=== PATIENT | female | born 1970 | race African-American/Black ===

== ENCOUNTER 2016-08-05 20:26 | Emergency (ER) | payer MEDICARE ==
[~2016-08-05 20:26] MED LIST: ALBUTEROL17 GM; ALBUTEROL17 GM INH; ALL DAY ALLERGY10 M3 PO; ARISTOCORT A 0.15 GM TOP; ASPIRIN PO; ATENOLOL PO; BACLOFEN10 MG PO; BAYER ASPIRIN325 M1 PO; BENTYL20 MG PO; BENZONATATE PO; BISOPROLOL FUMA10 MG PO; BUMETANIDE1 MG PO; BUMEX1 MG PO; CARDURA2 MG PO; CARTIA XT PO; CATAPRES0.3 MG PO; CLONIDINE HCL0.1 MG PO; CLONIDINE HCL0.3 MG PO; CLONIDINE PO; COATED ASPIRIN325 M1 PO; DAKIN'S MODIF1000 ML EXT; DILTIAZEM 24HR240 M1 PO; DILTIAZEM 24HR360 M1 PO; DOXAZOSIN MESYLA2 MG PO; DUONEB 2.5-0.5 M3 ML NEB; FLEXERIL10 MG PO; FUROSEMIDE40 MG PO; GLUCOTROL PO; GLUCOTROL10 MG PO; HYDRALAZINE HC100 MG PO; HYZAAR 100-25 T1 TAB PO; HYZAAR PO; IBUPROFEN800 MG PO; K-DUR20 ME1 PO; LANTUS100 UNITS/ SUBQ; LASIX PO; LINZESS290 MCG PO; LOSARTAN POTASS50 MG PO; MELOXICAM15 MG PO; METFORMIN PO; MICARDIS40 MG PO; MOBIC15 MG PO; MUCINEX DM ER1 EACH PO; MUCINEX100 MG/BOX PO; MUCUS RELIEF600 M1 PO; NAPROSYN500 MG PO; NORCO 5/325 TAB1 TAB PO; OINTMENT; ONGLYZA5 MG PO; PANTOPRAZOLE SO40 MG PO; PREDNISONE PO; PREDNISONE10 MG PO; PREDNISONE10 MG/DOSE PO; PROTONIX PO; RENAGEL800 MG PO; RENVELA0.8 GM PO; SANTYL15 G1 TP; SYMBICORT INH; TESSALON PERLE100 M1 PO; TRAMADOL HCL50 M1 PO; ZITHROMAX PO
[2016-08-05 20:45] LABS: BASOPHIL# 0.1 X10e3 (0-0.3); EOSINOPHIL# 0.3 X10e3 (0-0.7); EOSINOPHIL% 3.4 % (0.0-7.0); HEMATOCRIT 33.4 % (35.0-45.0); HEMOGLOBIN 10.8 gm/dL (12.0-16.0); LYMPHOCYTE# 2.4 X10e3 (1.0-3.5); LYMPHOCYTE% 23.8 % (17.0-45.0); MEAN CELL VOLUME 86.2 FL (83-96); MEAN CORPUSCULAR HEMOGLOBIN 27.8 PG (28-34); MEAN CORPUSCULAR HGB CONC 32.3 g/dL (30-36); MEAN PLATELET VOLUME 8.5 FL (6.5-11.5); MONOCYTE# 0.5 X10e3 (0-1.0); MONOCYTE% 5.4 % (3.0-12.0); NEUTROPHIL# 6.7 X10e3 (1.5-7.1); NEUTROPHIL% 66.4 % (40-75); PLATELET COUNT 286 X10e3 (140-420); RED BLOOD COUNT 3.87 X10e (3.90-5.30); RED CELL DISTRIBUTION WIDTH 15.1 % (11.0-15.5); WHITE BLOOD COUNT 10.1 X10e3 (4.0-10.5)
[2016-08-05 20:47] LABS: DIFF IND NO
== END 2016-08-05 21:11 | disposition home or self-care (01) ==
LOC: CFTX 20:26
PROVIDERS: Student in an Organized Health Care Education/Training Program
DX: J06.9 Acute upper respiratory infection, unspecified (principal); J02.9 Acute pharyngitis, unspecified; I10 Essential (primary) hypertension; M54.30 Sciatica, unspecified side; E11.9 Type 2 diabetes mellitus without complications; F41.9 Anxiety disorder, unspecified; Z88.0 Allergy status to penicillin
CPT/HCPCS: 36415; 85025; 87651; 99283

== ENCOUNTER 2016-08-10 11:13 | Emergency (ER) | payer MEDICARE | END 2016-08-10 12:35 | disposition home or self-care (01) | LOC: CED 11:13 | DX: M54.42 Lumbago with sciatica, left side (principal); G89.29 Other chronic pain; E11.9 Type 2 diabetes mellitus without complications; J44.9 Chronic obstructive pulmonary disease, unspecified; I10 Essential (primary) hypertension; G47.33 Obstructive sleep apnea (adult) (pediatric); Z98.890 Other specified postprocedural states; Z88.5 Allergy status to narcotic agent; Z88.1 Allergy status to other antibiotic agents; Z88.6 Allergy status to analgesic agent; Z88.8 Allergy status to other drugs, medicaments and biological substances | CPT/HCPCS: 99282; 99283 ==

== ENCOUNTER 2016-09-09 21:26 | Inpatient (IN) | payer MEDICARE, OTHER ==
--- NOTE | ~2016-09-09 | EKG ---
PATIENT: LINDA VANG UNIT #: [id number] Ventricular Rate: 79 BPM Atrial Rate: 79 BPM P-R Interval: 182 ms QRS Duration: 104 ms Q-T Interval: 456 ms QTC Calculation(Bezet): 522 ms P Louise: 26 degrees Calculated R Louise: -14 degrees Calculated T Louise: 141 degrees Diagnosis Line: Normal sinus rhythm Diagnosis Line: Voltage criteria for left ventricular hypertrophy Diagnosis Line: T wave abnormality, consider lateral ischemia Diagnosis Line: Prolonged QT Diagnosis Line: Abnormal ECG Diagnosis Line: When compared with ECG of 11-SEP-2016 05:31, Diagnosis Line: Nonspecific T wave abnormality, improved in Diagnosis Line: Inferior leads Diagnosis Line: QT has lengthened Diagnosis Line: Confirmed by RASTA ZHANG MD ([id number]) on 09/13/2016 Diagnosis Line: 7:05:16 PM INTERPRETING MD: VICENTE MCCABE
--- NOTE | ~2016-09-09 | CR265 ---
[facility] A Service of [facility] & [facility] RADIOLOGY TEXT RESULTS PATIENT: LINDA VANG LOCATION: [facility] 563-01 : [birth year] UNIT #: [id number] AGE: [address]: Araceli Coleman MD SEX: F ORDER DR: [id number] [facility] [address] [place], [place] [address] [id number] MR#: [id number] Acc #: [id number] NAME: LINDA VANG : 1970 SEX: F STUDY DATE/TIME: 09/11/2016 15:32 UNIT: [facility] ROOM: [facility] STUDY DESCRIPTION: CR Upper GI Series Wo KUB Attending Physician: Araceli Coleman M.D. Ordering Physician: Araceli Coleman M.D. Primary Care Physician: Stacia Torres M.D. MEDICAL IMAGING REPORT This report is preliminary unless electronic signature is present EXAM Upper GI series with fluoroscopy DATE 09/11/2016 HISTORY Nausea, vomiting, epigastric pain, morbid obesity, sleep apnea. 255 pounds. Urinary tract infection. Diabetes. Congestive heart failure. Heart murmur. Neuropathy. Nausea and vomiting with epigastric pain began approximately [address] abdomen and pelvis with contrast 09/11/2015 FINDINGS 23 spot fluoroscopic images were obtained with a total of 1.5 minutes fluoroscopy time. The study is severely limited, as the patient could not follow commands for the examination. She was somewhat somnolent. She could only swallow a few sips of contrast, and seemed somewhat confused, and the study was subsequently terminated. On the limited portion of the examination, there is some abnormal tertiary contraction within the thoracic esophagus with mild reflux. No gross hernia is seen. Only the proximal stomach was opacified with enteric contrast and it appears unremarkable. Consider repeat imaging when the patient is able to cooperate. Dictated by... Kriss Hernandez M.D. THIS IS AN ELECTRONICALLY VERIFIED REPORT Kriss Hernandez M.D. at 09/12/2016 7:11 AM [facility] A Service of [facility] & [facility] RADIOLOGY TEXT RESULTS PATIENT: LINDA VANG LOCATION: [facility] 563-01 : [birth year] UNIT #: [id number] AGE: [address]: Araceli Coleman MD SEX: F ORDER DR: OSIRIS/otis TD: 09/11/2016 17:45 JOB #: [id number] MEDICAL IMAGING REPORT Page 1 of 1 COPY
--- NOTE | ~2016-09-09 | CT2 ---
[facility] A Service of [facility] & [facility] RADIOLOGY TEXT RESULTS PATIENT: LINDA VANG LOCATION: [facility] 563-01 : [birth year] UNIT #: [id number] AGE: [address]: Jami Aguirre MD SEX: F ORDER DR: [id number] [facility] [address] [place], [place] [address] [id number] I MR#: [id number] Acc #: [id number] NAME: LINDA VANG : 1970 SEX: F STUDY DATE/TIME: 09/10/2016 0:07 UNIT: CEDOF ROOM: 86467 STUDY DESCRIPTION: CT Abd and Pelv W Cont Attending Physician: Jami Aguirre M.D. Ordering Physician: Reji Dan M.D. Primary Care Physician: Stacia Torres M.D. MEDICAL IMAGING REPORT This report is preliminary unless electronic signature is present EXAM CT abdomen and pelvis with contrast INDICATIONS Abdominal pain, nausea, vomiting for a week. COMPARISON 03/30/2015. TECHNIQUE Patient was given 100 mL of Isovue-370 and axial 5 mm images were obtained through the abdomen and pelvis with IV contrast. This CT exam was performed with one or more of the following radiation dose reduction techniques: automatic exposure control, adjustment of mA and/or kV according to patient size, and iterative reconstruction. FINDINGS Study is limited by patient size with the images being very grainy. The liver, gallbladder, spleen, pancreas, adrenal glands and kidneys are normal appearance. The lung bases are clear. There is a mass adjacent to the right side of the uterus. It is essentially isodense with the uterus and it is either a solid ovarian mass measuring 8 cm in diameter or a uterine fibroid. The ovary appears to be lateral to this mass so I believe it represents a uterine fibroid. The mass has developed since 2010 and the bladder is normal. The bones are unremarkable. IMPRESSION 1. There is an 8 cm mass between the uterus and right ovary. It is well-circumscribed and appears solid and is new from 2010. This could represent uterine fibroid or an ovarian lesion. COMMUNICATION STUDIES PROFESSOR consultation is recommended. [facility] A Service of [facility] & [facility] RADIOLOGY TEXT RESULTS PATIENT: LINDA VANG LOCATION: [facility] 563-01 : [birth year] UNIT #: [id number] AGE: [address]: Jami Aguirre MD SEX: F ORDER DR: 2. No acute findings are identified. Dictated by... Miki Marti M.D. THIS IS AN ELECTRONICALLY VERIFIED REPORT Miki Marti M.D. at 09/10/2016 9:54 PM SABIHA/ruben TD: 09/10/2016 17:55 JOB #: [id number] MEDICAL IMAGING REPORT Page 1 of 1 COPY
--- NOTE | ~2016-09-09 | CR72 ---
[facility] A Service of [facility] & [facility] RADIOLOGY TEXT RESULTS PATIENT: LINDA VANG LOCATION: [facility] : [birth year] UNIT #: [id number] AGE: [address]: Jami Aguirre MD SEX: F ORDER DR: [id number] [facility] [address] [place], [place] [address] [id number] I MR#: [id number] Acc #: [id number] NAME: LINDA VANG : 1970 SEX: F STUDY DATE/TIME: 09/09/2016 21:59 UNIT: CEDOF ROOM: 17018 STUDY DESCRIPTION: CR Chest Single View Portable Attending Physician: Jami Aguirre M.D. Ordering Physician: Reji Dan M.D. Primary Care Physician: Stacia Torres M.D. MEDICAL IMAGING REPORT This report is preliminary unless electronic signature is present EXAM Portable chest HISTORY Epigastric pain COMPARISON 07/11/2016 FINDINGS A portable view of the chest is obtained. The heart size is upper limits of normal. The vascularity is normal and the lungs are clear. The bones are unremarkable. IMPRESSION No active disease. Dictated by... Miki Marti M.D. THIS IS AN ELECTRONICALLY VERIFIED REPORT Miki Marti M.D. at 09/10/2016 9:55 PM FEL/to TD: 09/10/2016 16:20 JOB #: [id number] MEDICAL IMAGING REPORT Page 1 of 1 COPY
--- NOTE | ~2016-09-09 | CO ---
Unit #: [id number] #: [id number] Patient: LINDA ELIZABETH [id number] [address] [place], [place] [address] [id number] MR#: [id number] NAME: LINDA ELIZABETH ROOM: 563 Age: 46 Sex: F Admission Date: 09/10/2016 : 1970 Attending Physician: Araceli Coleman M.D. Primary Care Physician: Stacia Torres M.D. Requesting Physician: Araceli Coleman M.D. Consultation Date: 09/11/2016 CONSULTATION REPORT REASON FOR CONSULTATION Epigastric pain, nausea and vomiting. HISTORY OF PRESENT ILLNESS Ms. Elizabeth is a 46-year-old, morbidly obese, female. The patient's recorded weight in the chart is 360 pounds. She has weighed as much as 425 pounds in the past. The patient is somewhat lethargic and having fairly shallow respiratory effort at the present time and is unable to provide much history. Most of the history is obtained from the chart. She apparently came in with a history of nausea, vomiting and upper abdominal pain along with blood sugar, indicating uncontrolled diabetes. Blood pressure 250/140, indicating hypertensive urgency. She has also had reduced oral intake. Upon admission she was found to have a large mass within the ovary, suggestive of fibroids. There is no history of fever, chills or rigors. No history of diarrhea. The patient has also had heavy menstrual periods and has not followed up with any doctor for this latter. PAST MEDICAL HISTORY 1. History of super obesity. 2. Diabetes with poor control. 3. Obstructive sleep apnea. 4. Chronic obstructive pulmonary disease. 5. Hypertension. 6. Degenerative joint disease. PAST SURGICAL HISTORY 1. Bilateral tubal ligation. 2. Carpal tunnel syndrome. 3. section. SOCIAL HISTORY The patient lives with her , son and girlfriend. She stopped smoking 15 years ago. She does not drink alcohol. FAMILY HISTORY Significant for lung cancer and chronic obstructive pulmonary disease. ALLERGIES Penicillin, Tylenol, amoxicillin, codeine and Talwin. HOME MEDICATIONS 1. Ferrous sulfate. 2. Losartan. 3. Cardura. Unit #: [id number] #: [id number] Patient: LINDA ELIZABETH 4. Diltiazem ER. 5. Mucinex. 6. Glucotrol. 7. Neurontin. 8. Bumex. 9. Renvela. 10. Clonidine. 11. Protonix. 12. Glucophage. 13. Hydralazine. 14. Mobic. REVIEW OF SYSTEMS Detailed review of organs systems is difficult as the patient is lethargic. However, there is no history of overt GI bleed in the form of hematemesis, melena or hematochezia. No history of headache, seizures, chest pain, or syncope. There is a history of difficulty in breathing, as mentioned above. No history of dysuria, hematuria or pyuria. No history of focal seizures or extremity weakness. PHYSICAL EXAMINATION GENERAL: The patient is morbidly obese and appears lethargic. VITALS: Temperature 98.0, pulse 103 per minute and regular, respiratory rate 20 per minute, blood pressure 182/117. HEENT: She has mild pallor. No icterus, lymphadenopathy. LUNGS: Bilateral symmetric poor air entry. HEART: Distant heart sounds to auscultation. ABDOMEN: Morbidly obese making palpitation difficult. Liver and spleen are not palpable. Bowel sounds are normal. EXTREMITIES: Grade 1-2 pitting edema. DIAGNOSTIC STUDIES LABORATORY: Hemoglobin 11.6, baseline hemoglobin 13, white blood cell count 9,000 and normal, platelet count normal. INR 1.1. Serum chemistry shows normal BUN and creatinine and albumin 3.1. LFTs are normal. ASSESSMENT Patient with nausea, vomiting and upper abdominal pain. The differential diagnosis includes peptic ulcer disease, gastroesophageal reflux as well as fatty liver. In addition, the patient may have these symptoms due to gastroparesis from underlying diabetes. A diagnostic endoscopy is warranted. However, this would be an extremely high risk procedure with a very high likelihood of the patient getting into apnea, even with minimal sedation. The issue was discussed at length with Dr. Coleman, who showed her concern for the patient in terms of extremely high risk for procedure, even for endoscopy. It was decided not to proceed with the latter. It is noteworthy that a similar decision was reached last year or a few years ago when anesthesia said that the patient should not be sedated from an anesthetic standpoint because of extremely high risk of requiring ventilation. Thank you for asking me to see Ms. Elizabeth. I appreciate the consult. Dictated by... Kenneth Martini M.D. AK/gz Unit #: [id number] #: [id number] Patient: LINDA ELIZABETH TD: 09/22/2016 09:37 JOB #: [id number] CC: Araceli Coleman M.D. CONSULTATION REPORT Page 1 of 1 X Kenneth Martini MD X CONSULTATION REPORT
--- NOTE | ~2016-09-09 | BMI ---
[facility] Nutrition Therapy DATE: 09/11/16 Patient: LINDA VANG Physician: MARCO Address: [address] Room/Bed: [address] [place] [address], Zip: [place] [address] Admit Date: 09/10/16 Date of : [birth year] Height: 5 8 Weight: HIGH BMI NOTE: DX: 46 Y.O. FEMALE ADMITTED FOR HTN EMERGNCY UTI ANTHROPOMETRICS: 5'8", WT: 352# (160 KG), BMI: 53.5 DIET: NPO INTERVENTION: 1. NPO RECOMMENDATIONS: 1. ONCE MEDICALLY FEASIBLE, ADVANCE DIET INDICATED TO CC+HH TO PROMOTE GRADUAL WEIGHT LOSS TOWARDS HEALTHY BMI (19.0-25.0) OR +/-10%IBW RD WILL F/U PER PROTOCOL Respectfully, GLENN BARBER MS, RD, LD Food and Nutrition[facility] Services [facility] cc: client file
--- NOTE | ~2016-09-09 | DS ---
Unit #: [id number] #: [id number] Patient: LINDA ELIZABETH [id number] [address] [address] [id number] I MR#: [id number] NAME: LINDA ELIZABETH ROOM: 56 Age: 46 Sex: F Admission Date: 09/10/2016 : 1970 Discharge Date: 09/12/2016 Attending Physician: Araceli Coleman M.D. Primary Care Physician: Stacia Torres M.D. DISCHARGE SUMMARY PRINCIPAL DIAGNOSES 1. Hypertensive emergency. 2. Acute kidney injury, prerenal; discharge creatinine 1.5. 3. Elevated troponin. 4. Pyuria with Escherichia coli, 20,000 colony-forming units. 5. Nausea and vomiting, likely secondary to gastroesophageal reflux disease. 6. Constipation. 7. Diabetes mellitus type 2, non-insulin requiring and with stable glucose readings. 8. Hyperlipidemia. 9. Obstructive sleep apnea, not maintained on continuous positive airway pressure. 10. Morbid obesity. 11. Chronic back pain. 12. Iron deficiency anemia. 13. Gastroesophageal reflux disease. 14. Ypar-vd-pqfuuwqw aortic regurgitation. CONSULTANTS 1. Dr. Travis, cardiology. 2. Dr. Martini, gastroenterology. DIAGNOSTIC STUDIES CARDIOVASCULAR: Two-dimensional echocardiogram on September 10, 2016 with ejection fraction of 40% to 45%. Mildly dilated left atrium noted. Mild aortic stenosis noted. Dvch-pi-ixzhrmte aortic regurgitation. IMAGING: Chest x-ray on September 09, 2016, which was unremarkable. CT scan of the abdomen and pelvis with contrast on September 10, 2016 with a mass adjacent to the right side of the uterus and is either a solid ovarian mass versus a uterine fibroid and is felt most consistent with uterine fibroid. Upper GI with poor contrast intake; however, reflux in the thoracic esophagus noted. CLINICAL HISTORY AND HOSPITAL COURSE Ms. Elizabeth is a 46-year-old female who presented to the emergency department with complaints of abdominal pain. Please refer to H and P for further details. Abdominal pain was located primarily in the epigastric region. In the emergency department the patient was also found to be significantly hypertensive with a blood pressure of 250/140. The Unit #: [id number] #: [id number] Patient: LINDA ELIZABETH patient was subsequently admitted. In regard to the patient's hypertension, she was continued on her home medications in addition to IV medications. Cardiology was consulted. Troponin was checked due to the patient's significant hypertension and returned at 0.13, which was indeterminate. On the day of discharge, troponin was 0.1. I will note the patient did not have any significant EKG findings. Medical treatment versus heart cath was discussed by Dr. Travis with the patient. At this time the patient is opting for medical treatment only, and she will be discharged on meds as noted. In regard to the patient's hypertension, medications have been adjusted, and on day of discharge, her systolic is generally running consistently in the 140s to 150s, and diastolic in the 90s. This can be further adjusted as an outpatient. In regard to the patient's epigastric pain, again it is unclear whether this is cardiac in origin versus, perhaps, reflux. Dr. Martini was consulted. However, due to the patient's body habitus, she is very high risk for EGD, and this was not done. I placed the patient on increased PPI therapy, and her symptoms improved. Will continue on PPI therapy at home. The patient did have some associated constipation and did not have any relief with MiraLAX or Senokot. However, she is refusing suppository and/or enema at this time. The patient did have a mild bump in creatinine from a baseline of 0.9 and on day of 1.5. Diuretics will be held a couple days, and Cozaar has been discontinued. The patient does have significant underlying obstructive sleep apnea and is currently in the process of having a sleep study arranged by Dr. Acevedo. I have instructed her to continue to follow up with him. DISCHARGE CONDITION Stable. DISCHARGE STATUS Discharge to home. DISCHARGE MEDICATIONS 1. Neurontin 100 mg p.o. t.i.d. 2. Metformin 1,000 mg p.o. b.i.d., to restart on September 14, 2016. 3. Diltiazem ER 360 mg daily. 4. Bumex 2 mg p.o. b.i.d., to restart on September 16, 2016. 5. Mucinex-D ER 1 b.i.d. 6. Lipitor 20 mg at bedtime. 7. Clonidine 0.3 mg p.o. t.i.d. 8. Cardura 2 mg at bedtime. 9. Hydralazine 100 mg p.o. q.8 hours. 10. Ferrous sulfate 325 mg daily. 11. Renagel 800 mg p.o. t.i.d. with meals. 12. Aspirin 81 mg daily. 13. Protonix 40 mg daily. 14. Flexeril 10 mg p.o. t.i.d. 15. Glipizide 5 mg p.o. daily. 16. Isosorbide dinitrate 40 mg p.o. b.i.d. Unit #: [id number] #: [id number] Patient: LINDA ELIZABETH DISCHARGE INSTRUCTIONS Patient was instructed to follow a heart healthy, low calorie diet. She can increase her activity as tolerated. She can continue Accu-Cheks a.c. and h.s. at home. FOLLOW-UP 1. Patient will follow up with her primary care provider, Stacia Torres M.D., in 2 weeks. She need repeat basic metabolic panel at that time to ensure renal function is improving. 2. She will follow up with Dr. Travis on November 15, at 12:45 p.m. 3. The patient will also follow up with Dr. Acevedo regarding her sleep apnea. Dictated by... Araceli Coleman M.D. SUMAN/eula TD: 09/13/2016 08:44 JOB #: [id number] DISCHARGE SUMMARY Page 1 of 1 X Araceli Coleman MD DISCHARGE SUMMARY
--- NOTE | ~2016-09-09 | EKG ---
PATIENT: LINDA VANG UNIT #: [id number] Ventricular Rate: 100 BPM Atrial Rate: 100 BPM P-R Interval: 162 ms QRS Duration: 90 ms Q-T Interval: 344 ms QTC Calculation(Bezet): 443 ms P Picabo: 58 degrees Calculated R [place]: 4 degrees Calculated T [place]: 54 degrees Diagnosis Line: Normal sinus rhythm Diagnosis Line: Nonspecific T wave abnormality Diagnosis Line: Abnormal ECG Diagnosis Line: When compared with ECG of 09-SEP-2016 21:44, Diagnosis Line: Minimal criteria for Septal infarct are no longer Diagnosis Line: Present Diagnosis Line: Nonspecific T wave abnormality now evident in Diagnosis Line: Inferior leads Diagnosis Line: Confirmed by VICENTE MCCABE, RASTA ([id number]) on 09/12/2016 Diagnosis Line: 5:31:35 AM INTERPRETING MD: VICENTE MCCABE
--- NOTE | ~2016-09-09 | HP ---
Unit #: [id number] #: [id number] Patient: LINDA VANG [id number] [address] [place], [place] [address] [id number] I MR#: [id number] NAME: LINDA VANG ROOM: 05555 Age: 46 Sex: F Admission Date: 09/10/2016 : 1970 Attending Physician: Jami Aguirre M.D. Primary Care Physician: Stacia Torres M.D. HISTORY AND PHYSICAL CHIEF COMPLAINT Abdominal pain. HISTORY OF PRESENT ILLNESS The patient is a 46-year-old female with a history of COPD, obstructive sleep apnea, hypertension, and diabetes, presented to the emergency room last night with abdominal pain. The patient states that the pain is throbbing in nature and is mainly in the epigastric region associated with nausea and vomiting. The patient was found to be in hypertensive urgency with a blood pressure of 250/140 to 122. The patient also complains of decreased oral intake with abdominal pain. The patient had a positive troponin of 0.13 and down to 0.07. The patient had a CT of the abdomen and pelvis that showed a large mass between the ovary and it was concerning for the fibroids. The patient is being admitted for the above reasons. Denies any fevers, chills, diarrhea. Positive for the heavy menstrual periods and has not followed up with CAMPAIGN ASSISTANT for many years. PAST MEDICAL HISTORY 1. History of COPD. 2. Hypertension. 3. Obstructive sleep apnea. 4. Diabetes. 5. Morbid obesity. 6. DJD. PAST SURGICAL HISTORY 1. . 2. Bilateral tubal ligation. 3. Right hand carpal tunnel release. 4. Bilateral ear tubes. ALLERGIES She is allergic to Talwin, penicillin, Tylenol, amoxicillin and codeine. HOME MEDICATIONS She is on: 1. Ferrous sulfate. 2. Losartan. 3. Cardura. 4. Diltiazem. 5. Flexeril. 6. Mucinex. 7. Glucotrol. 8. Neurontin. Unit #: [id number] #: [id number] Patient: LINDA VANG 9. Bumex. 10. Renvela. 11. Clonidine. 12. Protonix. 13. Glucophage. 14. Hydralazine. 15. Mobic. FAMILY HISTORY Positive for COPD and lung cancer. SOCIAL HISTORY The patient lives with her , son and girlfriend. She stopped smoking 15 years ago, does not drink alcohol. REVIEW OF SYSTEMS Fourteen point review of systems was performed and only pertinent positive findings are described above, remaining are negative. PHYSICAL EXAMINATION GENERAL: The patient is sitting on a chair, not in acute distress. VITALS: Temperature 98.4, pulse 112, respirations 21, blood pressure 253/149 and repeat is 250/122. Sat'ing 96% at room air. HEAD: Atraumatic, normocephalic. EENT: Pupils equal, round, reactive to light and accommodation. Extraocular movements are intact. Dry mucous membranes. NECK: Supple. LUNGS: Decreased air entry at the bases. HEART: Regular rate and rhythm. ABDOMEN: Soft. Positive bowel sounds. Positive for obesity. EXTREMITIES: Positive for venous stasis. NEURO: The patient is alert, awake, oriented. No gross focal motor deficit. DIAGNOSTIC STUDIES LABORATORY DATA: Glucose 247, BUN 14, creatinine 1.1, sodium 135, potassium 3.2, chloride 102, bicarb 23, calcium 8, total protein 6.2, albumin 2.8. CK total is 299. Troponin is 0.1. BNP is 229. WBC 14.4, hemoglobin 13.1, hematocrit 41.8 and platelets 315. Neutrophils 84.6. UA shows 10-25 urine RBCs and 10-25 urine WBCs, 2+ bacteria. ASSESSMENT AND PLAN 1. Hypertensive urgency. 2. Elevated nonspecific elevated troponin. 3. Hypokalemia. 4. Morbid obesity. 5. Bacteruria, rule out urinary tract infection. 6. Fibroids. Plan is to admit the patient to inpatient. Patient will be continued with supportive care with Zofran for nausea and vomiting. The patient has been consulted with cardiology for nonspecific troponins. The patient will also have a consult with the GI for the nausea and vomiting and abdominal pain. Repeat the straight cath urine to rule out the UTI. The patient has received levofloxacin in the emergency room. Will have a CAMPAIGN ASSISTANT consult for the fibroids either as an inpatient open reduction internal fixation outpatient if the patient continues to have pain. Continue with DVT Unit #: [id number] #: [id number] Patient: LINDA VANG prophylaxis and Protonix and sliding scale. Further recommendations will follow. Dictated by Isidro Navarro TD: 09/10/2016 15:17 JOB #: [id number] HISTORY AND PHYSICAL Page 1 of 1 X X HISTORY AND PHYSICAL
--- NOTE | ~2016-09-09 | CO ---
Unit #: [id number] #: [id number] Patient: LINDA ELIZABETH [id number] [facility] [address] [place], [place] [address] [id number] I MR#: [id number] NAME: LINDA ELIZABETH ROOM: 563 Age: 46 Sex: F Admission Date: 09/10/2016 : 1970 Attending Physician: Jami Aguirre M.D. Primary Care Physician: Stacia Torres M.D. CONSULTATION REPORT CHIEF COMPLAINT Abdominal pain, nausea. We were asked to see for hypertensive urgency. HISTORY OF PRESENT ILLNESS Ms. Elizabeth is a 46-year-old, morbidly obese, female, who has a known history of COPD, obstructive sleep apnea, chronic hypoxic respiratory failure, diabetes, and hypertension, who presented with one week duration of abdominal discomfort. She states that one week ago, she started feeling this abdominal fullness and bloating. She was having difficulty eating and drinking and taking her medicines, but she was able throughout the day to get all of her medicines and taking a couple pills at a time. This abdominal fullness and bloating persisted until three days ago, where it worsened with abdominal pain that she says feels like a sharp pain, and she got to the point that every time she took a drink of water or a bite, she was very nauseated, but was unable to vomit. Until she got to the point, she was unable to take anything and she was unable to eat, she was unable to drink, and she was unable to take her medications. Once she got to the point, she was unable to take her medications, she came into the hospital. She still has this feeling of fullness, discomfort, and pain. The patient started taking Pepto-Bismol three days ago b.i.d. and received no relief from her discomfort. In the emergency room, she received 500 mL normal saline bolus, Zofran 4 mg IV, hydralazine 10 mg IV, Dilaudid 1 mg IV, aspirin 325 mg, nitro paste 1 inch to her chest. Repeat hydralazine of 10 mg IV, labetalol 10 mg IV, and Levaquin 500 mg IV. PAST MEDICAL HISTORY 1. Microcytic anemia, iron deficiency. 2. COPD, obstructive sleep apnea, chronic hypoxic respiratory failure, diabetes type 2, severe morbid obesity, adnexal mass. The patient denies that she ever followed up with a animal cruelty investigator. 3. Generalized anxiety disorder. 4. Hypertension. 5. Echo on 12/02/2013 showed a normal size left ventricle, EF was 45% to 50%, E to E was 12. Right ventricle was normal in size. Right atrium was normal in size. Trace mitral regurgitation. Trace tricuspid regurgitation. Cardiovascular risk factors positive for hypertension, positive for diabetes, remote tobacco quit greater than 30 years ago. No dyslipidemia. No family history of premature arteriosclerotic heart disease. PAST SURGICAL HISTORY , right carpal tunnel release, bilateral myringotomy tubes. Unit #: [id number] #: [id number] Patient: LINDA ELIZABETH ALLERGIES Talwin, penicillin, codeine, amoxicillin, Tylenol. HOME MEDICATIONS Ferrous sulfate 325 mg daily; losartan 50 mg daily; Cardura 2 mg at bedtime; Cardizem 360 mg daily; Flexeril 10 mg t.i.d.; Mucinex D extended release one tablet b.i.d.; Glucotrol 5 mg daily; Neurontin 100 mg t.i.d.; Bumex 2 mg b.i.d.; Renvela 800 mg t.i.d.; clonidine 0.3 mg t.i.d.; Protonix 40 mg daily; Glucophage 1000 mg b.i.d.; hydralazine 100 mg every 8 hours; Mobic 15 mg daily. SOCIAL HISTORY No alcohol. Quit tobacco 30 years ago. The patient has an immobility syndrome. She is wheelchair bound. She lives with a friend and her son. The patient states she is unable to walk. Does not use a walker. FAMILY HISTORY Mother had COPD. from lung cancer. Father with hypertension. REVIEW OF SYSTEMS No fevers, no chills. No cough, no shortness of air. No chest discomfort, no palpitations. No near syncope. No dizziness. Positive for abdominal pain, abdominal distention, feeling of fullness, bloating, anorexia, nausea. No vomiting. No hematuria. No melena. No bright red bleeding per rectum. Positive mild bilateral lower extremity swelling. No seizures. Immobility syndrome. The patient does not walk nor does she stand. PHYSICAL EXAMINATION GENERAL: Morbidly obese, pleasant female, sitting in a wheelchair, in no acute distress. HEENT: Normocephalic and atraumatic. No xanthelasma. Pupils are equal, round, and reactive to light. Extraocular movements intact. No obvious jugular venous distention. No elevation of CVP appreciated. LUNGS: Clear to auscultation anteriorly, posteriorly, bilaterally in all capps. HEART: S1, S2. No S3, S4. No murmur, rubs, or gallops. No obvious displacement of PMI, but very difficult to truly assess. Normal sinus rhythm on monitor. VITAL SIGNS: Temp 98.4, pulse 101, respirations 19, blood pressure 177/128, when I was in room 181/125. 5 feet 8 inches. Weight is 160.11 kg. ABDOMEN: Bowel sounds present. Abdomen is grossly obese. Difficult to perform any type of abdominal exam. EXTREMITIES: Mild bilateral lower extremity edema with hypertrophic skin. 1+ pulses. DIAGNOSTIC STUDIES At this time, no diagnostic testing has been ordered. LABORATORY RESULTS: Chemistry reveals sodium 135, potassium 3.2, chloride 102, CO2 of 23, BUN 14, creatinine 1.1, glucose 247, calcium 8.0, total protein 6.2, albumin 2.8, total bilirubin 0.8, direct bilirubin 0.1, indirect bilirubin 0.8, AST 21, ALT 18, alkaline phosphatase 50, amylase 13, lipase 29. Total CK 299, point of care troponin 0.06 and 0.07. Repeat troponin 0.13. TSH back in 2015 was 1.88. Hemoglobin 13.1, hematocrit 41.8, white blood cell count 14.4, on admission 12.3; platelet count 315. Toxicology is positive for opiates, positive for TCA. Urinalysis shows 1+ protein, glucose 250, ketones 2+, urobilinogen 1.0, bile negative, blood Unit #: [id number] #: [id number] Patient: LINDA ELIZABETH 2+, leukocyte esterase negative, nitrite negative. Microscopy shows red blood cells 10 to 25, white blood cells 10 to 25, bacteria 2+, many squamous cells. Culture is pending. ASSESSMENT AND PLAN 1. Hypertensive urgency secondary to the patient unable to take medications for several days now. 2. Abdominal pain discomfort. Dr. Martini has been consulted. 3. Hypokalemia, has been replaced. 4. Presumed urinary tract infection with leukocytosis. Has received antibiotic x1 in the emergency room. 5. Nondiagnostic troponin elevation without complaints of chest discomfort. Had a dobutamine stress echo back in 2004, which was negative. Echo in 2013 showed EF of 45% to 50%. We have added hydralazine 5 to 10 mg IV every 4 hours p.r.n. for systolic blood pressure greater than 160 mmHg. CBC, CMP, troponin, EKG, TSH, lipid profile in the morning. The patient was seen by Dr. Travis and plan per Dr. Travis. Levaquin was added 500 mg IV daily for her urinary tract infection. We will continue to follow. Thank you for this consult. Dictated by... Marko York/alexys TD: 09/11/2016 03:40 JOB #: [id number] CONSULTATION REPORT Page 1 of 1 X X CONSULTATION REPORT
--- NOTE | ~2016-09-09 | EKG ---
PATIENT: LINDA VANG UNIT #: [id number] Ventricular Rate: 120 BPM Atrial Rate: 120 BPM P-R Interval: 146 ms QRS Duration: 94 ms Q-T Interval: 336 ms QTC Calculation(Bezet): 474 ms P [place]: 44 degrees Calculated R [place]: -31 degrees Calculated T [place]: 107 degrees Diagnosis Line: Sinus tachycardia Diagnosis Line: Left axis deviation Diagnosis Line: Left ventricular hypertrophy with repolarization Diagnosis Line: abnormality Diagnosis Line: Cannot rule out Septal infarct (cited on or before Diagnosis Line: 09-SEP-2016) Diagnosis Line: Abnormal ECG Diagnosis Line: When compared with ECG of 06-MAY-2016 21:29, Diagnosis Line: No significant change was found Diagnosis Line: Confirmed by LILY COTTRELL MD ([id number]) on Diagnosis Line: 09/10/2016 3:52:20 PM INTERPRETING MD: ISHAN
[2016-09-09 21:49] LABS: ALBUMIN SERUM 2.9 g/dL (3.5-5.0); BILIRUBIN, DIRECT 0.1 mg/dL (0.0-0.2); BILIRUBIN,INDIRECT 0.8 mg/dL (0.0-0.9); BILIRUBIN,TOTAL 0.9 mg/dL (0.2-2.0); BUN/CREATININE RATIO 10.9; CALCIUM SERUM 8.5 mg/dL (8.4-10.2); CREATININE SERUM 1.1 mg/dL (0.6-1.4); GLOM FILT RATE Estimated 68.8 mL/min (>60); POTASSIUM 3.2 mmol/L (3.5-5.1); PROTEIN TOTAL SERUM 6.7 g/dL (6.0-8.3)
[2016-09-09 22:02] LABS: BASOPHIL# 0.1 X10e3 (0-0.3); BASOPHIL% 1.2 % (0-2.5); EOSINOPHIL# 0.1 X10e3 (0-0.7); EOSINOPHIL% 0.4 % (0.0-7.0); HEMATOCRIT 45.2 % (35.0-45.0); HEMOGLOBIN 14.2 gm/dL (12.0-16.0); LYMPHOCYTE# 1.7 X10e3 (1.0-3.5); LYMPHOCYTE% 13.8 % (17.0-45.0); MEAN CELL VOLUME 83.1 FL (83-96); MEAN CORPUSCULAR HEMOGLOBIN 26.2 PG (28-34); MEAN CORPUSCULAR HGB CONC 31.5 g/dL (30-36); MEAN PLATELET VOLUME 9.1 FL (6.5-11.5); MONOCYTE# 0.6 X10e3 (0-1.0); MONOCYTE% 4.6 % (3.0-12.0); NEUTROPHIL# 9.8 X10e3 (1.5-7.1); PLATELET COUNT 341 X10e3 (140-420); RED BLOOD COUNT 5.43 X10e (3.90-5.30); RED CELL DISTRIBUTION WIDTH 14.8 % (11.0-15.5); WHITE BLOOD COUNT 12.3 X10e3 (4.0-10.5)
[2016-09-09 22:06] LABS: DIFF IND NO
[2016-09-09 22:19] LABS: POC - CKMB 2.4 ng/mL (0.0-7.9); POC - TROPONIN 0.06 ng/mL (<=0.05)
[2016-09-10 00:15] LABS: POC - CKMB 3.9 ng/mL (0.0-7.9); POC - TROPONIN 0.07 ng/mL (<=0.05)
[2016-09-10 00:30] LABS: URINE SOURCE CLEAN CATCH
[2016-09-10 00:31] LABS: CULTURE INDICATED? YES; URINE APPEARANCE CLOUDY; URINE BACTERIA AUWI 2+ (NEGATIVE); URINE BLOOD 2+ (NEG); URINE COLOR DK YELLOW; URINE GLUCOSE 250 MG/DL (NEG); URINE KETONE 2+ (NEG); URINE LEUKOCYTE ESTERASE NEG (NEG); URINE NITRATE NEG (NEG); URINE PROTEIN 1+ (NEG); URINE SPECIFIC GRAVITY 1.043 (1.003-1.035); URINE SQUAMOUS EPITHELIAL CELL MANY /[HPF]
[2016-09-10 00:39] LABS: URINE BILIRUBIN NEG (NEG)
[2016-09-10 00:44] LABS: AMPHETAMINE NEG (NEG); BARBITURATES NEG (NEG); BENZODIAZEPINES NEG (NEG); COCAINE NEG (NEG); MARIJUANA NEG (NEG); OPIATES POS (NEG); TRICYCLIC ANTIDEPRESSANTS POS (NEG); U METHADONE NEG (NEG)
[2016-09-10] MEDS ORDERED: NEURONTIN100 MG PO (01:00)
[2016-09-10] MEDS ORDERED: MUCINEX D ER T1 EAC1 PO (01:00)
[2016-09-10] MEDS ORDERED: GLUCOTROL PO (01:00)
[2016-09-10] MEDS ORDERED: BUMETANIDE2 M1 PO (01:01)
[2016-09-10] MEDS ORDERED: RENVELA800 MG PO (01:01)
[2016-09-10] MEDS ORDERED: CLONIDINE HCL0.3 MG PO (01:01)
[2016-09-10] MEDS ORDERED: PROTONIX PO (01:02)
[2016-09-10] MEDS ORDERED: METFORMIN PO (01:02)
[2016-09-10] MEDS ORDERED: HYDRALAZINE HC100 MG PO (01:03)
[2016-09-10] MEDS ORDERED: FERROUS SULFATE PO (01:03)
[2016-09-10] MEDS ORDERED: MOBIC15 MG PO (01:03)
[2016-09-10] MEDS ORDERED: CARDURA2 MG PO (01:04)
[2016-09-10] MEDS ORDERED: LOSARTAN POTASS50 MG PO (01:04)
[2016-09-10] MEDS ORDERED: DILTIAZEM 24HR360 M1 PO (01:05)
[2016-09-10] MEDS ORDERED: FLEXERIL10 MG PO (01:05)
[2016-09-10 02:09] LABS: BASOPHIL# 0.2 X10e3 (0-0.3); BASOPHIL% 1.1 % (0-2.5); DIFF IND NO; EOSINOPHIL% 0.3 % (0.0-7.0); HEMATOCRIT 41.8 % (35.0-45.0); HEMOGLOBIN 13.1 gm/dL (12.0-16.0); LYMPHOCYTE# 1.4 X10e3 (1.0-3.5); LYMPHOCYTE% 9.7 % (17.0-45.0); MEAN CORPUSCULAR HEMOGLOBIN 26.4 PG (28-34); MEAN CORPUSCULAR HGB CONC 31.4 g/dL (30-36); MEAN PLATELET VOLUME 8.9 FL (6.5-11.5); MONOCYTE# 0.6 X10e3 (0-1.0); MONOCYTE% 4.3 % (3.0-12.0); NEUTROPHIL# 12.2 X10e3 (1.5-7.1); NEUTROPHIL% 84.6 % (40-75); PLATELET COUNT 315 X10e3 (140-420); RED BLOOD COUNT 4.98 X10e (3.90-5.30); RED CELL DISTRIBUTION WIDTH 14.8 % (11.0-15.5); WHITE BLOOD COUNT 14.4 X10e3 (4.0-10.5)
[2016-09-10 02:35] LABS: ALBUMIN SERUM 2.8 g/dL (3.5-5.0); BILIRUBIN,TOTAL 0.8 mg/dL (0.2-2.0); BUN/CREATININE RATIO 12.72; CREATININE SERUM 1.1 mg/dL (0.6-1.4); GLOM FILT RATE Estimated 68.8 mL/min (>60); POTASSIUM 3.2 mmol/L (3.5-5.1); PROTEIN TOTAL SERUM 6.2 g/dL (6.0-8.3)
[2016-09-10 02:54] LABS: %MB 2.5 % (0.0-4.0); MB 7.4 ng/ml
[2016-09-11 06:15] LABS: BASOPHIL# 0.1 X10e3 (0-0.3); BASOPHIL% 0.7 % (0-2.5); EOSINOPHIL# 0.1 X10e3 (0-0.7); EOSINOPHIL% 0.6 % (0.0-7.0); HEMATOCRIT 36.9 % (35.0-45.0); HEMOGLOBIN 11.6 gm/dL (12.0-16.0); LYMPHOCYTE# 0.8 X10e3 (1.0-3.5); LYMPHOCYTE% 8.8 % (17.0-45.0); MEAN CELL VOLUME 84.9 FL (83-96); MEAN CORPUSCULAR HEMOGLOBIN 26.6 PG (28-34); MEAN CORPUSCULAR HGB CONC 31.4 g/dL (30-36); MEAN PLATELET VOLUME 9.2 FL (6.5-11.5); MONOCYTE# 0.3 X10e3 (0-1.0); MONOCYTE% 3.7 % (3.0-12.0); NEUTROPHIL# 8.2 X10e3 (1.5-7.1); NEUTROPHIL% 86.2 % (40-75); PLATELET COUNT 212 X10e3 (140-420); RED BLOOD COUNT 4.34 X10e (3.90-5.30); WHITE BLOOD COUNT 9.5 X10e3 (4.0-10.5)
[2016-09-11 06:23] LABS: DIFF IND NO
[2016-09-11 07:16] LABS: ALBUMIN SERUM 2.9 g/dL (3.5-5.0); BILIRUBIN,TOTAL 0.6 mg/dL (0.2-2.0); BUN/CREATININE RATIO 12.35; CALCIUM SERUM 8.7 mg/dL (8.4-10.2); CREATININE SERUM 1.7 mg/dL (0.6-1.4); GLOM FILT RATE Estimated 40.6 mL/min (>60); POTASSIUM 3.8 mmol/L (3.5-5.1)
[2016-09-11 12:18] LABS: ARTERIAL BLD GAS O2 SATURATION 93.4 % (90.0-100.0); ARTERIAL BLOOD GAS CARBOXY HB 0.9 %sat (0.0-9.0); ARTERIAL BLOOD GAS HCO3 27.4 mmol/L; ARTERIAL BLOOD GAS MET HB 0.7 %sat (0.0-2.0); ARTERIAL BLOOD GAS PCO2 43.8 mmHg (35.0-45.0); ARTERIAL BLOOD GAS pH 7.405 (7.350-7.450)
[2016-09-11 12:19] LABS: ARTERIAL BLOOD GAS ALLEN TEST NORMAL; ARTERIAL BLOOD GAS ART SITE LEFT RADIAL; ARTERIAL BLOOD GAS DELIVERY NASAL CANNULA; ARTERIAL BLOOD GAS PO2 73.9 mmHg (80.0-100); ARTERIAL DRAW? YES
[2016-09-12 05:25] LABS: HEMATOCRIT 32.2 % (35.0-45.0); HEMOGLOBIN 10.1 gm/dL (12.0-16.0); MEAN CELL VOLUME 84.3 FL (83-96); MEAN CORPUSCULAR HEMOGLOBIN 26.3 PG (28-34); MEAN CORPUSCULAR HGB CONC 31.2 g/dL (30-36); MEAN PLATELET VOLUME 9.1 FL (6.5-11.5); RED BLOOD COUNT 3.83 X10e (3.90-5.30); RED CELL DISTRIBUTION WIDTH 14.6 % (11.0-15.5); WHITE BLOOD COUNT 6.3 X10e3 (4.0-10.5)
[2016-09-12 07:44] LABS: CALCIUM SERUM 8.2 mg/dL (8.4-10.2); CREATININE SERUM 1.5 mg/dL (0.6-1.4); GLOM FILT RATE Estimated 47.3 mL/min (>60); POTASSIUM 3.5 mmol/L (3.5-5.1)
[2016-09-12] MEDS ORDERED: LIPITOR20 MG PO (14:20)
[2016-09-12] MEDS ORDERED: ASPIRIN81 MG PO (14:24)
[2016-09-12] MEDS ORDERED: ISORDIL PO (14:28)
== END 2016-09-12 17:17 | disposition home or self-care (01) | DRG 683 ==
LOC: CED 21:26 → C5C 09-10 00:50
PROVIDERS: Emergency Medicine; Internal Medicine; Internal Medicine Cardiovascular Disease
PROC: B246ZZZ Ultrasonography of Right and Left Heart (ICD-10-PCS; principal; 2016-09-10)
DX: N17.9 Acute kidney failure, unspecified (principal); I16.1 Hypertensive emergency; N39.0 Urinary tract infection, site not specified; Z68.43 Body mass index [BMI] 50.0-59.9, adult; I10 Essential (primary) hypertension; B96.20 Unspecified Escherichia coli [E. coli] as the cause of diseases classified elsewhere; E11.9 Type 2 diabetes mellitus without complications; E78.5 Hyperlipidemia, unspecified; R11.2 Nausea with vomiting, unspecified; K59.00 Constipation, unspecified; Z79.84 Long term (current) use of oral hypoglycemic drugs; G47.33 Obstructive sleep apnea (adult) (pediatric); E66.01 Morbid (severe) obesity due to excess calories; G89.29 Other chronic pain; M54.9 Dorsalgia, unspecified; D50.9 Iron deficiency anemia, unspecified; K21.9 Gastro-esophageal reflux disease without esophagitis; I35.1 Nonrheumatic aortic (valve) insufficiency; D25.9 Leiomyoma of uterus, unspecified; J44.9 Chronic obstructive pulmonary disease, unspecified; M19.90 Unspecified osteoarthritis, unspecified site; E87.6 Hypokalemia; Z87.891 Personal history of nicotine dependence; Z83.6 Family history of other diseases of the respiratory system; Z98.51 Tubal ligation status; Z79.82 Long term (current) use of aspirin; Z88.1 Allergy status to other antibiotic agents; Z88.5 Allergy status to narcotic agent; Z88.0 Allergy status to penicillin; Z88.8 Allergy status to other drugs, medicaments and biological substances
CPT/HCPCS: 36415; 36600; 71010; 74177; 74240; 80048; 80053; 80061; 80076; 80307; 81003; 82150; 82550; 82553; 82803; 82947; 83690; 83735; 84443; 84484; 84703; 85025; 85027; 87086; 87088; 87186; 93005; 93306; 96361; 96374; 96375; 96376; 97162; 97530; 99285; G8978-GP; G8979-GP; J0360; J1170; J1815; J1956; J2270; J2405; Q9967

== ENCOUNTER 2016-09-19 23:15 | Emergency (ER) | payer MEDICARE, OTHER ==
--- NOTE | ~2016-09-19 | CR72 ---
[facility] A Service of [facility] RADIOLOGY TEXT RESULTS PATIENT: LINDA VANG LOCATION: [facility] : [birth year] UNIT #: [id number] AGE: [address]: Nazario Gonzalez MD SEX: F ORDER DR: [id number] [facility] [address] [place], [place] [address] [id number] E MR#: [id number] Acc #: [id number] NAME: LINDA VANG : 1970 SEX: F STUDY DATE/TIME: 09/19/2016 22:38 UNIT: [facility] ROOM: STUDY DESCRIPTION: CR Chest Single View Portable Attending Physician: Nazario Gonzalez M.D. Ordering Physician: Nazario Gonzalez M.D. Primary Care Physician: Stacia Torres M.D. MEDICAL IMAGING REPORT This report is preliminary unless electronic signature is present EXAM AP portable chest 09/19/2016 HISTORY 46-year-old female in the ED complaining of 1-week history of chest pain and congestion. Elevated blood pressure. TECHNIQUE AP portable chest x-ray. FINDINGS The examination is technically limited by patient body habitus. Lung volumes are chronically low. The heart is moderately enlarged, stable since 09/09/2016. Pulmonary vascular markings appear mildly prominent today but may be exaggerated by shallow lung expansion. Correlate clinically for evidence of mcyfnyowxu-iw-tukc vascular congestion. No airspace consolidation, pneumothorax or pleural effusion. IMPRESSION 1. Limited study as noted above. 2. Stable moderate cardiomegaly. 3. Potential borderline vascular congestion versus vascular crowding due to shallow lung expansion. Dictated by... Issa Sun M.D. THIS IS AN ELECTRONICALLY VERIFIED REPORT Issa Sun M.D. at 09/20/2016 5:59 AM MARIBEL/estefania TD: 09/20/2016 00:18 [facility] A Service of [facility] RADIOLOGY TEXT RESULTS PATIENT: LINDA VANG LOCATION: [facility] #: [id number] : [birth year] UNIT #: [id number] AGE: [address]: Nazario Gonzalez MD SEX: F ORDER DR: JOB #: [id number] MEDICAL IMAGING REPORT Page 1 of 1 COPY
--- NOTE | ~2016-09-19 | EKG ---
PATIENT: LINDA VANG UNIT #: [id number] Ventricular Rate: 88 BPM Atrial Rate: 88 BPM P-R Interval: 182 ms QRS Duration: 94 ms Q-T Interval: 434 ms QTC Calculation(Bezet): 525 ms P [place]: 33 degrees Calculated R [place]: -10 degrees Calculated T [place]: 125 degrees Diagnosis Line: Diagnosis Line: Normal sinus rhythm Diagnosis Line: Minimal voltage criteria for LVH, may be normal Diagnosis Line: variant Diagnosis Line: T wave abnormality, consider lateral ischemia Diagnosis Line: Prolonged QT Diagnosis Line: Abnormal ECG Diagnosis Line: When compared with ECG of 19-SEP-2016 23:10, Diagnosis Line: (unconfirmed) Diagnosis Line: QT has lengthened Diagnosis Line: Confirmed by RASTA ZHANG MD ([id number]) on 09/20/2016 Diagnosis Line: 10:37:50 PM INTERPRETING MD: VICENTE MCCABE
[2016-09-19 22:58] LABS: BASOPHIL# 0.1 X10e3 (0-0.3); EOSINOPHIL# 0.2 X10e3 (0-0.7); EOSINOPHIL% 1.7 % (0.0-7.0); HEMATOCRIT 32.5 % (35.0-45.0); HEMOGLOBIN 10.2 gm/dL (12.0-16.0); LYMPHOCYTE# 1.2 X10e3 (1.0-3.5); MEAN CELL VOLUME 84.7 FL (83-96); MEAN CORPUSCULAR HEMOGLOBIN 26.5 PG (28-34); MEAN CORPUSCULAR HGB CONC 31.3 g/dL (30-36); MEAN PLATELET VOLUME 9.4 FL (6.5-11.5); MONOCYTE# 0.5 X10e3 (0-1.0); MONOCYTE% 5.1 % (3.0-12.0); NEUTROPHIL# 7.6 X10e3 (1.5-7.1); NEUTROPHIL% 79.2 % (40-75); PLATELET COUNT 251 X10e3 (140-420); RED BLOOD COUNT 3.84 X10e (3.90-5.30); RED CELL DISTRIBUTION WIDTH 15.2 % (11.0-15.5); WHITE BLOOD COUNT 9.6 X10e3 (4.0-10.5)
[2016-09-19 23:02] LABS: DIFF IND NO
[~2016-09-19 23:15] MED LIST changes: +ASPIRIN81 MG PO; +BUMETANIDE2 M1 PO; +FERROUS SULFATE PO; +ISORDIL PO; +LIPITOR20 MG PO; +MUCINEX D ER T1 EAC1 PO; +NEURONTIN100 MG PO; +RENVELA800 MG PO
[2016-09-19 23:18] LABS: ALBUMIN SERUM 3.1 g/dL (3.5-5.0); ALKALINE PHOSPHATASE 64 U/L (32-92); ALT (SGPT) 20 U/L (10-40); AST (SGOT) 21 U/L (10-42); BILIRUBIN, DIRECT <0.1 mg/dL (0.0-0.2); BILIRUBIN,INDIRECT 0.6 mg/dL (0.0-0.9); BILIRUBIN,TOTAL 0.7 mg/dL (0.2-2.0); BLOOD UREA NITROGEN 13 mg/dL (9-23); BUN/CREATININE RATIO 11.81; CALCIUM SERUM 9.2 mg/dL (8.4-10.2); CARBON DIOXIDE 25 mmol/L (22-31); CHLORIDE 104 mmol/L (100-111); CREATININE SERUM 1.1 mg/dL (0.6-1.4); GLOM FILT RATE Estimated 68.8 mL/min (>60); GLUCOSE FASTING 349 mg/dL (70-110); LIPASE 71 U/L (22-51); POTASSIUM 4.3 mmol/L (3.5-5.1); PROTEIN TOTAL SERUM 6.9 g/dL (6.0-8.3); SODIUM 136 mmol/L (135-145)
[2016-09-19 23:42] LABS: POC - CKMB 4.2 ng/mL (0.0-7.9); POC - TROPONIN 0.07 ng/mL (<=0.05)
== END 2016-09-20 00:15 | disposition home or self-care (01) ==
LOC: CED 23:15
PROVIDERS: Emergency Medicine
DX: I10 Essential (primary) hypertension (principal); K21.9 Gastro-esophageal reflux disease without esophagitis
CPT/HCPCS: 36415; 71010; 80048; 80076; 82553; 83690; 83880; 84484; 85025; 93005; 96374; 96375; 99284; C9113; J2765

== ENCOUNTER 2016-10-06 03:13 | Inpatient (IN) | payer MEDICARE, OTHER ==
--- NOTE | ~2016-10-06 | EKG ---
PATIENT: LINDA VANG UNIT #: [id number] Ventricular Rate: 117 BPM Atrial Rate: 117 BPM P-R Interval: 164 ms QRS Duration: 94 ms Q-T Interval: 376 ms QTC Calculation(Bezet): 524 ms P [place]: 16 degrees Calculated R [place]: -23 degrees Calculated T [place]: 119 degrees Diagnosis Line: Sinus tachycardia Diagnosis Line: Left ventricular hypertrophy with repolarization Diagnosis Line: abnormality Diagnosis Line: Prolonged QT Diagnosis Line: Abnormal ECG Diagnosis Line: No previous ECGs available Diagnosis Line: Confirmed by THANIA BELTRAN MD ([id number]) on 10/06/2016 Diagnosis Line: 8:08:56 PM INTERPRETING MD: RUBY MCCABE
--- NOTE | ~2016-10-06 | EKG ---
PATIENT: LINDA VANG UNIT #: [id number] Ventricular Rate: 83 BPM Atrial Rate: 83 BPM P-R Interval: 204 ms QRS Duration: 100 ms Q-T Interval: 456 ms QTC Calculation(Bezet): 535 ms P [place]: 36 degrees Calculated R [place]: -12 degrees Calculated T [place]: 120 degrees Diagnosis Line: Normal sinus rhythm Diagnosis Line: Moderate voltage criteria for LVH, may be normal Diagnosis Line: variant Diagnosis Line: T wave abnormality, consider lateral ischemia Diagnosis Line: Prolonged QT Diagnosis Line: Abnormal ECG Diagnosis Line: When compared with ECG of 06-OCT-2016 03:22, Diagnosis Line: (unconfirmed) Diagnosis Line: No significant change was found Diagnosis Line: Confirmed by THANIA BELTRAN MD ([id number]) on 10/06/2016 Diagnosis Line: 8:12:28 PM INTERPRETING MD: RUBY MCCABE
--- NOTE | ~2016-10-06 | EKG ---
PATIENT: LINDA VANG UNIT #: [id number] Ventricular Rate: 97 BPM Atrial Rate: 97 BPM P-R Interval: 182 ms QRS Duration: 102 ms Q-T Interval: 400 ms QTC Calculation(Bezet): 508 ms P [place]: 49 degrees Calculated R [place]: 3 degrees Calculated T [place]: 149 degrees Diagnosis Line: Normal sinus rhythm Diagnosis Line: Minimal voltage criteria for LVH, may be normal Diagnosis Line: variant Diagnosis Line: T wave abnormality, consider lateral ischemia Diagnosis Line: Prolonged QT Diagnosis Line: Abnormal ECG Diagnosis Line: When compared with ECG of 07-OCT-2016 10:18, Diagnosis Line: (unconfirmed) Diagnosis Line: No significant change was found Diagnosis Line: Confirmed by RASTA ZHANG MD ([id number]) on 10/09/2016 Diagnosis Line: 5:44:45 AM INTERPRETING MD: VICENTE MCCABE
--- NOTE | ~2016-10-06 | DS ---
Unit #: [id number] #: [id number] Patient: LINDA VANG [id number] [address] [address] [id number] I MR#: [id number] NAME: LINDA VANG ROOM: 578 Age: 46 Sex: F Admission Date: 10/06/2016 : 1970 Discharge Date: 10/10/2016 Attending Physician: Arsenio Elias M.D. Primary Care Physician: Stacia Torres M.D. DISCHARGE SUMMARY REASON FOR ADMISSION Hypertensive urgency, acute hypoxic respiratory failure, acute on chronic systolic heart failure exacerbation. HISTORY OF PRESENT ILLNESS/HOSPITAL COURSE Please see H and P for complete details. In regards to her prior history of heart failure, the patient underwent 2-D echocardiogram this hospital admission showing an ejection fraction of 40 to 45%, very limited study. Aortic stenosis was noted with mild to moderate aortic regurgitation noted. Dr. Saha and associates continued to follow the patient through hospital course, adjusting medications secondary to accelerated hypertension. Secondary to CT chest being performed in hospital course, which raised the possibility of edema versus multifocal pneumonia, the patient was treated with IV antibiotics which will be transitioned to p.o. doxycycline at time of discharge. The patient does have severe morbid obesity to which we had Nutrition Services seen and evaluate the patient for dietary changes as well as appropriate information was given on lap band. At this point in time, the patient seems stable for discharge home. She has not ambulated in almost 10 years and resides in a power wheelchair. Overall, her long-term prognosis is guarded secondary to elevated BMI of 56. I encouraged her to follow with her primary care physician to seek advise into possible weight loss surgical interventions, especially gastric sleeve which may be considered. FINAL DISCHARGE DIAGNOSES 1. Acute hypoxic respiratory failure. 2. Chronic respiratory failure on home O2. 3. Hypertensive urgency. 4. Acute on chronic systolic heart failure. 5. Acute exacerbation of chronic obstructive pulmonary disease. 6. Acute bronchitis. 7. Multifocal pneumonia versus pulmonary edema. 8. Type 2 diabetes mellitus. 9. Chronic kidney disease. 10. Severe morbid obesity. 11. Chronic immobility syndrome. Unit #: [id number] #: [id number] Patient: LINDA VANG 12. Severe bilateral knee osteoarthritis. 13. Obstructive sleep apnea with questionable compliance of continuous positive airway pressure. Discharge laboratory studies do show creatinine level of 1.1. CBC showing hemoglobin of 10.1, MCV of 82. FINAL DISCHARGE MEDICATIONS 1. Neurontin 100 mg p.o. t.i.d. 2. Lexapro 10 mg p.o. q.h.s. 3. Glucophage 1,000 mg p.o. b.i.d. 4. Lopressor 100 mg p.o. b.i.d. 5. Xanax 0.5 mg p.o. daily p.r.n., #10, prescription given. 6. Bumex 2 mg p.o. b.i.d. 7. Lipitor 20 mg p.o. q.h.s. 8. Clonidine 0.3 mg p.o. t.i.d. 9. Cardura 2 mg p.o. q.h.s. 10. Hydralazine 100 mg p.o. b.i.d. 11. Cozaar 100 mg p.o. b.i.d. 12. Ferrous gluconate 324 mg p.o. daily. 13. Reglan 10 mg p.o. q.a.c. 14. Carafate one gram p.o. q.a.c. and q.h.s. 15. Aspirin 81 mg p.o. daily. 16. Renvela 800 mg p.o. t.i.d. 17. Aldactone 25 mg p.o. q.a.m. 18. Protonix 40 mg p.o. daily. 19. Klor-Con 20 mEq p.o. daily. 20. Flexeril 10 mg p.o. q.8 p.r.n. 21. Glucotrol 5 mg p.o. daily before breakfast. 22. Doxycycline 100 mg p.o. b.i.d. x10 days. DISCHARGE CONDITION Stable. DISCHARGE DISPOSITION Home. LONG-TERM PROGNOSIS Guarded. Dictated by... Arsenio Elias M.D. Mary Jane TD: 10/10/2016 12:45 JOB #: [id number] DISCHARGE SUMMARY Page 1 of 1 X Arsenio Elias MD DISCHARGE SUMMARY
--- NOTE | ~2016-10-06 | CR72 ---
[facility] A Service of [facility] RADIOLOGY TEXT RESULTS PATIENT: LINDA VANG LOCATION: [facility] : 66 UNIT #: [id number] AGE: [address]: Reji Dna MD SEX: F ORDER DR: [id number] [facility] [address] [place], [place] [address] [id number] E MR#: [id number] Acc #: [id number] NAME: LINDA VANG : 1970 SEX: F STUDY DATE/TIME: 10/06/2016 3:35 UNIT: [facility] ROOM: STUDY DESCRIPTION: CR Chest Single View Portable Attending Physician: Reji Dan M.D. Ordering Physician: Reji Dan M.D. Primary Care Physician: Stacia Torres M.D. MEDICAL IMAGING REPORT This report is preliminary unless electronic signature is present EXAM Portable chest HISTORY Shortness of air and cough for 4 days. COMPARISON 09/19/2016 FINDINGS AP portable view of the chest demonstrates cardiomegaly. Prominence of the pulmonary vascularity with haziness over both lungs may represent a combination of interstitial and alveolar edema, right greater than left. No effusions. Mediastinum, bony thorax unremarkable. No evidence of pneumothorax. Dictated by... Maira Hammonds M.D. THIS IS AN ELECTRONICALLY VERIFIED REPORT Maira Hammonds M.D. at 10/06/2016 5:53 AM JORDAN/ben TD: 10/06/2016 05:17 JOB #: [id number] MEDICAL IMAGING REPORT Page 1 of 1 COPY
--- NOTE | ~2016-10-06 | HP ---
Unit #: [id number] #: [id number] Patient: LINDA VANG [id number] [address] [place] [facility] [place] [facility]. [place], [place] [address] [id number] E MR#: [id number] NAME: LINDA VANG ROOM: Age: 46 Sex: F Admission Date: 10/06/2016 : 1970 Attending Physician: Reji Dan M.D. Primary Care Physician: Stacia Torres M.D. HISTORY AND PHYSICAL REVISED REPORT CHIEF COMPLAINT Hypertensive urgency, acute hypoxic respiratory failure, congestive heart failure. HISTORY This very pleasant 46-year-old female with a cardiomyopathy, COPD, hypertension, morbid obesity, is admitted for shortness of breath. The patient states that she was well until last evening when she became increasingly short of breath. She checked her O2 saturation which is only about 60%. EMS was called and the patient was put on a non-rebreather. Was brought to this emergency department with initial blood pressure of 258/125. She was given 10 IV of hydralazine, one inch of nitro paste, aspirin. Currently has been given 40 mg of IV Lasix. Chest x-ray is most consistent with congestive heart failure. The patient has been experiencing a productive cough over the past week but no fevers, sweats, chills. Notes right sided chest discomfort with coughing. Currently on examination, she does have crackles at the bases but no significant wheezing. Troponin is 0.06. EKG shows T wave inversions, 1 and AVL, and according to the computer was noted to have T wave inversions in the lateral leads in the past. Will obtain an old EKG. At this time, the patient is breathing much better, her O2 saturation is 97% on 50% Venti-mask. Blood pressure has improved to 204/114. The patient was last admitted to this facility three weeks ago for hypertensive urgency. Her troponins were indeterminate at that time and she was seen in consultation by cardiology. She was also found to have an E. coli UTI. PAST MEDICAL HISTORY 1. Iron deficiency anemia. 2. COPD and obstructive sleep apnea. 3. Hypertension. 4. Adult onset diabetes mellitus. 5. Cardiomyopathy, ejection fraction 40% to 45% with mild to moderate AR and mild aortic stenosis on most recent echo 09/10/2016. 6. Uterine fibroid. 7. GERD. 8. Morbid obesity. 9. DJD. 10. AODM with neuropathy. Unit #: [id number] #: [id number] Patient: LINDA VANG 11. . 12. BTL. 13. Right carpal tunnel release. 14. Bilateral ear tubes. ALLERGIES Talwin, penicillin, Tylenol, amoxicillin and codeine. HOME MEDICATIONS 1. Mucinex. 2. Glucotrol 5 mg daily. 3. Neurontin 100 mg t.i.d. 4. Bumex 2 mg b.i.d. 5. Renvela 800 mg t.i.d. 6. Clonidine 0.3 mg t.i.d. 7. Protonix 40 mg daily. 8. Glucophage 1000 mg b.i.d. 9. Hydralazine 100 mg t.i.d. 10. Iron sulfate 325 mg daily. 11. Cardura 2 mg q. h.s. 12. Cardizem 360 mg daily. 13. Flexeril 10 mg t.i.d. 14. Lipitor 20 mg daily. 15. Aspirin 81 mg daily. 16. Isosorbide 40 mg b.i.d. 17. Reglan possibly. 18. Carafate possibly. FAMILY HISTORY COPD and lung cancer. SOCIAL HISTORY The patient lives with her roommate. She stopped smoking in her 20s. Was never a heavy smoker. Does not drink alcohol. REVIEW OF SYSTEMS Notable for shortness of breath, COPD, hypertension, productive cough, obstructive sleep apnea, AODM, cardiomyopathy, DJD, above mentioned surgeries, uterine fibroid, iron deficiency anemia, acid reflux. All other systems were reviewed and otherwise negative. PHYSICAL EXAMINATION GENERAL APPEARANCE: Very pleasant, obese, 46-year-old female, currently in no acute distress. VITAL SIGNS: Temperature 99.8, pulse 124, respirations 30, initial blood pressure 258/125, currently is 204/114. O2 saturation is 98% on a 50% Venti-mask. HEENT: Eyes PERRLA. Extraocular muscles are intact. Pharynx is benign. NECK: Supple without adenopathy or thyromegaly. CHEST: Crackles bilaterally at the bases. CARDIAC: Normal S1 and S2 without definite murmur. ABDOMEN: Bowel sounds are present, obese, nontender. No definite hepatosplenomegaly or masses. EXTREMITIES: With chronic venous stasis changes and chronic edema. Pedal pulses are diminished. No ulcers on the feet. NEUROLOGIC: The patient is awake, alert, oriented. Cranial nerves are intact. She has equal strength throughout. Unit #: [id number] #: [id number] Patient: LINDA VANG DIAGNOSTIC STUDIES LABORATORY: Admission labs - hematocrit is 35.9, white blood count is 11.9, normal platelet count. Coags normal. SMA-12 - glucose 210, BNP 101. Troponin 0.06. ABG - pH 7.39, pCO2 40, pO2 73, O2 saturation 92.6% on a 50% Venti-mask. IMAGING: Chest x-ray - cardiomegaly. Likely congestive heart failure. CARDIOVASCULAR: EKG - sinus tachycardia, rate 117 with T wave inversions 1 and AVL. Left axis deviation. ASSESSMENT 1. Hypertensive urgency. 2. Acute hypoxic respiratory failure, likely secondary to acute congestive heart failure in this patient with a cardiomyopathy, ejection fraction 40% to 45%. 3. Chronic obstructive pulmonary disease with a productive cough. 4. Morbid obesity. 5. History of iron deficiency anemia. 6. Adult onset diabetes mellitus with peripheral neuropathy. 7. Obstructive sleep apnea. 8. Gastroesophageal reflux disease. PLANS 1. IV Bumex, obtain I's and O's and daily weights. 2. Blood pressure control. 3. Serial cardiac enzymes. 4. Obtain CT scan of the chest without contrast. 5. Doxycycline pending sputum cultures and DuoNeb. 6. DVT prophylaxis. 7. Consultants based on above. Dictated by Dariana Cota M.D. AML/df TD: 10/06/2016 05:45 JOB #: [id number] HISTORY AND PHYSICAL Page 1 of 1 X Dariana Cota MD X HISTORY AND PHYSICAL
--- NOTE | ~2016-10-06 | CT57 ---
[facility] A Service of [facility] & [facility] RADIOLOGY TEXT RESULTS PATIENT: LINDA VANG LOCATION: [facility] 578-01 : [birth year] UNIT #: [id number] AGE: [address]: Alexandra Beckwith MD SEX: F ORDER DR: [id number] [facility] [address] [place], [place] [address] [id number] I MR#: [id number] Acc #: [id number] NAME: LINDA VANG : 1970 SEX: F STUDY DATE/TIME: 10/06/2016 8:41 UNIT: [facility] ROOM: [facility] STUDY DESCRIPTION: CT Chest Wo Cont Attending Physician: Alexandra Beckwith M.D. Ordering Physician: Dariana Cota M.D. Primary Care Physician: Stacia Torres M.D. MEDICAL IMAGING REPORT This report is preliminary unless electronic signature is present EXAM CT of the chest without contrast INDICATION Acute hypoxic respiratory failure. Patient was admitted on October 06, 2016. TECHNIQUE Axial CT images were obtained from the thoracic inlet through the dome of the diaphragm. No intravenous contrast material was administered. This CT exam was performed with one or more of the following radiation dose reduction techniques: automatic exposure control, adjustment of mA and/or kV according to patient size, and iterative reconstruction. FINDINGS Cardiomegaly is identified. The patient is noted to have ground-glass infiltrates within both lungs. These are in a basilar predominant distribution. The thyroid gland and trachea appear within normal limits. There is a small hiatal hernia. Patient does have a small pericardial effusion. There is a mildly prominent right paratracheal node which appears unchanged when compared to November,. I do not see any acute abnormalities within the upper abdomen. Review of bony windows does not demonstrate any aggressive osseous abnormalities. IMPRESSION This patient has cardiomegaly as well as ground-glass infiltrates particularly within a perihilar distribution. There is also a small pericardial effusion. I suspect that this reflects some vascular congestion. Multifocal pneumonia would be another consideration. Correlation with clinical presentation is recommended. Please see the body of the report for any other additional incidental findings [facility]. [facility] A Service of [facility] RADIOLOGY TEXT RESULTS PATIENT: LINDA VANG LOCATION: [facility] 578-01 : [birth year] UNIT #: [id number] AGE: [address]: Alexandra Beckwith MD SEX: F ORDER DR: Dictated by... Tasha Mustafa M.D. THIS IS AN ELECTRONICALLY VERIFIED REPORT Tasha Mustafa M.D. at 10/06/2016 10:08 AM Max TD: 10/06/2016 10:04 JOB #: [id number] MEDICAL IMAGING REPORT Page 1 of 1 COPY
--- NOTE | ~2016-10-06 | BMI ---
[facility] Nutrition Therapy DATE: 10/07/16 Patient: LINDA VANG Physician: ARI Address: [address] Room/Bed: [address] [place] [address], Zip: [place] [address] Admit Date: 10/06/16 Date of : [birth year] Height: 5 8 Weight: 370 167.82 HIGH BMI NOTE: ANTHROPOMETRICS: HT: 68" WT: 167.8 KG BMI: 56.2 DIET: CONSISTENT CARBOHYDRATE RECOMMENDATIONS: 1. ADD A HEART HEALTHY DIET RESTRICTION TO PROMOTE GRADUAL WEIGHT LOSS TOWARDS A HEALTHY BMI. Respectfully, EDWARD FOWLER RD, LD Food and Nutritional Services [facility] cc: client file
--- NOTE | ~2016-10-06 | EKG ---
PATIENT: LINDA VANG UNIT #: [id number] Ventricular Rate: 79 BPM Atrial Rate: 79 BPM P-R Interval: 184 ms QRS Duration: 102 ms Q-T Interval: 452 ms QTC Calculation(Bezet): 518 ms P [place]: 47 degrees Calculated R [place]: -5 degrees Calculated T [place]: 140 degrees Diagnosis Line: Normal sinus rhythm Diagnosis Line: Moderate voltage criteria for LVH, may be normal Diagnosis Line: variant Diagnosis Line: T wave abnormality, consider lateral ischemia Diagnosis Line: Prolonged QT Diagnosis Line: Abnormal ECG Diagnosis Line: When compared with ECG of 06-OCT-2016 17:27, Diagnosis Line: T wave inversion more evident in Lateral leads Diagnosis Line: Confirmed by RASTA ZHANG MD ([id number]) on 10/09/2016 Diagnosis Line: 5:37:22 AM INTERPRETING MD: VICENTE MCCABE
[2016-10-06 03:31] LABS: ARTERIAL BLD GAS O2 SATURATION 92.6 % (90.0-100.0); ARTERIAL BLOOD GAS HCO3 24.5 mmol/L; ARTERIAL BLOOD GAS MET HB 0.7 %sat (0.0-2.0); ARTERIAL BLOOD GAS PCO2 40.3 mmHg (35.0-45.0); ARTERIAL BLOOD GAS pH 7.393 (7.350-7.450)
[2016-10-06 03:32] LABS: ARTERIAL BLOOD GAS ALLEN TEST NORMAL; ARTERIAL BLOOD GAS ART SITE RIGHT RADIAL; ARTERIAL BLOOD GAS DELIVERY VENTURI MASK; ARTERIAL BLOOD GAS PO2 72.8 mmHg (80.0-100); ARTERIAL DRAW? YES
[2016-10-06 03:48] LABS: POC - CKMB 5.5 ng/mL (0.0-7.9); POC - TROPONIN 0.06 ng/mL (<=0.05)
[2016-10-06 03:53] LABS: BASOPHIL# 0.1 X10e3 (0-0.3); BASOPHIL% 0.5 % (0-2.5); EOSINOPHIL# 0.1 X10e3 (0-0.7); EOSINOPHIL% 1.2 % (0.0-7.0); HEMATOCRIT 35.9 % (35.0-45.0); HEMOGLOBIN 11.1 gm/dL (12.0-16.0); LYMPHOCYTE# 0.9 X10e3 (1.0-3.5); LYMPHOCYTE% 7.7 % (17.0-45.0); MEAN CELL VOLUME 82.3 FL (83-96); MEAN CORPUSCULAR HEMOGLOBIN 25.4 PG (28-34); MEAN CORPUSCULAR HGB CONC 30.9 g/dL (30-36); MEAN PLATELET VOLUME 8.8 FL (6.5-11.5); MONOCYTE# 0.2 X10e3 (0-1.0); MONOCYTE% 2.1 % (3.0-12.0); NEUTROPHIL# 10.5 X10e3 (1.5-7.1); NEUTROPHIL% 88.5 % (40-75); PLATELET COUNT 290 X10e3 (140-420); RED BLOOD COUNT 4.36 X10e (3.90-5.30); RED CELL DISTRIBUTION WIDTH 14.9 % (11.0-15.5); WHITE BLOOD COUNT 11.9 X10e3 (4.0-10.5)
[2016-10-06 04:05] LABS: PARTIAL THROMBOPLASTIN TIME 25.7 SECONDS (23.5-31.3); PROTHROMBIN TIME (PATIENT) 10.4 SECONDS (9.6-11.5)
[2016-10-06 04:09] LABS: ALBUMIN SERUM 3.5 g/dL (3.5-5.0); BILIRUBIN, DIRECT 0.1 mg/dL (0.0-0.2); BILIRUBIN,INDIRECT 0.5 mg/dL (0.0-0.9); BILIRUBIN,TOTAL 0.6 mg/dL (0.2-2.0); BUN/CREATININE RATIO 12.72; CALCIUM SERUM 8.9 mg/dL (8.4-10.2); CREATININE SERUM 1.1 mg/dL (0.6-1.4); GLOM FILT RATE Estimated 68.8 mL/min (>60); POTASSIUM 3.5 mmol/L (3.5-5.1); PROTEIN TOTAL SERUM 7.6 g/dL (6.0-8.3)
[2016-10-06 04:10] LABS: DIFF IND NO
[2016-10-06] MEDS ORDERED: REGLAN10 MG PO (04:25)
[2016-10-06] MEDS ORDERED: CARAFATE1 GM PO (04:25)
[2016-10-06 05:56] LABS: POC - CKMB 4.5 ng/mL (0.0-7.9); POC - TROPONIN <0.05 ng/mL (<=0.05)
[2016-10-06 18:47] LABS: BUN/CREATININE RATIO 11.66; CALCIUM SERUM 8.7 mg/dL (8.4-10.2); CREATININE SERUM 1.2 mg/dL (0.6-1.4); GLOM FILT RATE Estimated 61.9 mL/min (>60); MAGNESIUM 1.7 mg/dL (1.6-3.0); POTASSIUM 3.7 mmol/L (3.5-5.1)
[2016-10-06 19:07] LABS: MB 6.5 ng/ml
[2016-10-07 02:48] LABS: %MB 1.8 % (0.0-4.0); MB 5.8 ng/ml
[2016-10-07 06:53] LABS: HEMOGLOBIN 9.9 gm/dL (12.0-16.0); MEAN CELL VOLUME 83.7 FL (83-96); MEAN CORPUSCULAR HGB CONC 31.1 g/dL (30-36); MEAN PLATELET VOLUME 9.5 FL (6.5-11.5); RED BLOOD COUNT 3.82 X10e (3.90-5.30); RED CELL DISTRIBUTION WIDTH 14.6 % (11.0-15.5)
[2016-10-07 06:55] LABS: WHITE BLOOD COUNT 5.2 X10e3 (4.0-10.5)
[2016-10-07 07:19] LABS: BUN/CREATININE RATIO 14.54; CALCIUM SERUM 8.6 mg/dL (8.4-10.2); CREATININE SERUM 1.1 mg/dL (0.6-1.4); GLOM FILT RATE Estimated 68.8 mL/min (>60)
[2016-10-07 07:33] LABS: MB 5.6 ng/ml
[2016-10-08 07:53] LABS: HEMATOCRIT 34.1 % (35.0-45.0); HEMOGLOBIN 10.6 gm/dL (12.0-16.0); MEAN CELL VOLUME 83.3 FL (83-96); MEAN CORPUSCULAR HEMOGLOBIN 25.8 PG (28-34); MEAN PLATELET VOLUME 9.8 FL (6.5-11.5); RED BLOOD COUNT 4.1 X10e (3.90-5.30); RED CELL DISTRIBUTION WIDTH 15.3 % (11.0-15.5); WHITE BLOOD COUNT 5.9 X10e3 (4.0-10.5)
[2016-10-08 08:33] LABS: BUN/CREATININE RATIO 14.16; CALCIUM SERUM 8.8 mg/dL (8.4-10.2); CREATININE SERUM 1.2 mg/dL (0.6-1.4); GLOM FILT RATE Estimated 61.9 mL/min (>60)
[2016-10-08 08:36] LABS: CHOLESTEROL 102 mg/dL (0-200)
[2016-10-08 08:37] LABS: HDL CHOLESTEROL 40 mg/dL (35-95); LDL CHOLESTEROL 43 mg/dL (-130); LDL/HDL RATIO 1 RATIO (0-4); TRIGLYCERIDES 96 mg/dL (10-160)
[2016-10-09 05:40] LABS: HEMATOCRIT 33.5 % (35.0-45.0); HEMOGLOBIN 10.4 gm/dL (12.0-16.0); MEAN CELL VOLUME 82.8 FL (83-96); MEAN CORPUSCULAR HEMOGLOBIN 25.8 PG (28-34); MEAN CORPUSCULAR HGB CONC 31.1 g/dL (30-36); MEAN PLATELET VOLUME 9.7 FL (6.5-11.5); RED BLOOD COUNT 4.05 X10e (3.90-5.30); RED CELL DISTRIBUTION WIDTH 15.1 % (11.0-15.5); WHITE BLOOD COUNT 5.1 X10e3 (4.0-10.5)
[2016-10-09 06:09] LABS: BUN/CREATININE RATIO 13.63; CALCIUM SERUM 8.7 mg/dL (8.4-10.2); CREATININE SERUM 1.1 mg/dL (0.6-1.4); GLOM FILT RATE Estimated 68.8 mL/min (>60); POTASSIUM 4.1 mmol/L (3.5-5.1)
[2016-10-10 05:44] LABS: HEMATOCRIT 32.6 % (35.0-45.0); HEMOGLOBIN 10.1 gm/dL (12.0-16.0); MEAN CELL VOLUME 82.6 FL (83-96); MEAN CORPUSCULAR HEMOGLOBIN 25.7 PG (28-34); MEAN PLATELET VOLUME 9.8 FL (6.5-11.5); RED BLOOD COUNT 3.94 X10e (3.90-5.30); WHITE BLOOD COUNT 4.5 X10e3 (4.0-10.5)
[2016-10-10 05:58] LABS: BUN/CREATININE RATIO 15.45; CALCIUM SERUM 8.7 mg/dL (8.4-10.2); CREATININE SERUM 1.1 mg/dL (0.6-1.4); GLOM FILT RATE Estimated 68.8 mL/min (>60); POTASSIUM 4.1 mmol/L (3.5-5.1)
[2016-10-10] MEDS ORDERED: ESCITALOPRAM OX10 MG PO (14:34)
[2016-10-10] MEDS ORDERED: ALPRAZOLAM0.5 MG PO (14:34)
[2016-10-10] MEDS ORDERED: METOPROLOL TAR100 MG PO (14:35)
[2016-10-10] MEDS ORDERED: ATRAC-TAIN142 GM EXT (14:36)
[2016-10-10] MEDS ORDERED: ALDACTONE25 MG PO (14:37)
[2016-10-10] MEDS ORDERED: LOSARTAN POTASS50 MG PO (14:37)
[2016-10-10] MEDS ORDERED: K-DUR20 ME2 PO (14:39)
[2016-10-10] MEDS ORDERED: DOXYCYCLINE HY100 M3 PO (14:40)
== END 2016-10-10 15:27 | disposition home or self-care (01) | DRG 291 ==
LOC: CED 03:13 → C5C 05:15 → CEDOF 05:15 → CED 05:22 → CEDOF 06:35 → C5C 09:23 → CEDOF 09:23 → C5C 10-10 09:34
PROVIDERS: Emergency Medicine; Family Medicine; Internal Medicine; Nurse Practitioner
DX: I11.0 Hypertensive heart disease with heart failure (principal); J96.21 Acute and chronic respiratory failure with hypoxia; J18.9 Pneumonia, unspecified organism; Z68.43 Body mass index [BMI] 50.0-59.9, adult; J44.0 Chronic obstructive pulmonary disease with (acute) lower respiratory infection; J44.1 Chronic obstructive pulmonary disease with (acute) exacerbation; I50.23 Acute on chronic systolic (congestive) heart failure; I16.0 Hypertensive urgency; I35.2 Nonrheumatic aortic (valve) stenosis with insufficiency; E66.01 Morbid (severe) obesity due to excess calories; Z99.3 Dependence on wheelchair; J20.9 Acute bronchitis, unspecified; E11.42 Type 2 diabetes mellitus with diabetic polyneuropathy; M62.3 Immobility syndrome (paraplegic); M17.0 Bilateral primary osteoarthritis of knee; G47.33 Obstructive sleep apnea (adult) (pediatric); I42.9 Cardiomyopathy, unspecified; N85.8 Other specified noninflammatory disorders of uterus; K21.9 Gastro-esophageal reflux disease without esophagitis; Z87.891 Personal history of nicotine dependence; J45.909 Unspecified asthma, uncomplicated; Z88.1 Allergy status to other antibiotic agents; Z88.5 Allergy status to narcotic agent; Z88.0 Allergy status to penicillin
CPT/HCPCS: 36600; 71010; 71250; 80048; 80061; 80076; 82550; 82553; 82803; 82947; 83036; 83735; 83880; 84443; 84484; 85025; 85027; 85610; 85730; 87040; 93005; 94640; 94760; 96374; 99291; J0360; J1650; J1815; J1940

== ENCOUNTER 2016-10-11 13:53 | Observation (INO) | payer MEDICARE, OTHER ==
--- NOTE | ~2016-10-11 | CR72 ---
[facility] A Service of [facility] & [facility] RADIOLOGY TEXT RESULTS PATIENT: LINDA VANG LOCATION: [facility] [address]119-08 : [birth year] UNIT #: [id number] AGE: [address]: LEILA LICEA MD SEX: F ORDER DR: [id number] [facility] [address] [place], [place] [address] [id number] E MR#: [id number] Acc #: [id number] NAME: LINDA VANG : 1970 SEX: F STUDY DATE/TIME: 10/11/2016 17:06 UNIT: [facility] ROOM: STUDY DESCRIPTION: CR Chest Single View Portable Attending Physician: Klever Fuller M.D. Referring Physician: Bandar Carreon M.D. Ordering Physician: Ed Jeovany Reveles M.D. Primary Care Physician: Stacia Torres M.D. MEDICAL IMAGING REPORT This report is preliminary unless electronic signature is present EXAM Single view chest. INDICATIONS Shortness of air for 2 weeks. Cough. FINDINGS Single portable AP view of the chest compared to 10/06/2016. Cardiac silhouette is enlarged. There is a moderate interstitial edema and likely small pleural effusions. The appearance is fairly similar to the prior chest radiograph. No pneumothorax. IMPRESSION Cardiomegaly and moderate interstitial edema. This is fairly similar to the prior study. Dictated by... Robin Pena M.D. THIS IS AN ELECTRONICALLY VERIFIED REPORT Robin Pena M.D. at 10/11/2016 9:45 PM JESUS/ike TD: 10/11/2016 18:36 JOB #: [id number] MEDICAL IMAGING REPORT Page 1 of 1 COPY
--- NOTE | ~2016-10-11 | EKG ---
PATIENT: LINDA VANG UNIT #: [id number] Ventricular Rate: 76 BPM Atrial Rate: 76 BPM P-R Interval: 178 ms QRS Duration: 100 ms Q-T Interval: 442 ms QTC Calculation(Bezet): 497 ms P [place]: 49 degrees Calculated R [place]: -14 degrees Calculated T [place]: 93 degrees Diagnosis Line: Normal sinus rhythm Diagnosis Line: Minimal voltage criteria for LVH, may be normal Diagnosis Line: variant Diagnosis Line: T wave abnormality, consider lateral ischemia Diagnosis Line: Prolonged QT Diagnosis Line: Abnormal ECG Diagnosis Line: Diagnosis Line: Confirmed by THANIA BELTRAN MD ([id number]) on 10/12/2016 Diagnosis Line: 10:39:05 AM INTERPRETING MD: RUBY MCCABE
--- NOTE | ~2016-10-11 | HP ---
Unit #: [id number] #: [id number] Patient: LINDA VANG [id number] [address] [address] [id number] E MR#: [id number] NAME: LINDA VANG ROOM: Age: 46 Sex: F Admission Date: 10/11/2016 : 1970 Attending Physician: Dawit Fuller Primary Care Physician: Stacia Torres M.D. HISTORY AND PHYSICAL CHIEF COMPLAINT Shortness of breath. HISTORY OF PRESENT ILLNESS The patient is 46-year-old female with history of cardiomyopathy, COPD, hypertension, morbid obesity, who presented to the emergency room with shortness of breath. The patient was discharged home yesterday in the afternoon after a prolonged hospitalization with hypertensive urgency, acute hypoxic respiratory failure, klhrs-qz-natsazu systolic heart failure exacerbation. The patient stated the patient went home and slept the night and woke up this morning, took her blood pressure medications. The patient tried to get up from the bed and was short of breath. The patient stated the patient checked the pulse oximetry and the pulse ox was 80 and then the patient presented to the emergency room. The patient was discharged home with chronic respiratory failure on home oxygen. However, the patient stated the patient did not receive the home oxygen and the patient's saturations were 89% in the emergency room. The patient is being admitted for observation for the oxygen, home oxygen, and hypertensive urgency with blood pressure 182/105. PAST MEDICAL HISTORY 1. History of chronic respiratory failure. 2. Hypertensive urgency. 3. Odtmn-dy-esnaojg systolic heart failure. 4. COPD. 5. Bronchitis. 6. Multifocal pneumonia. 7. Type 2 diabetes mellitus. 8. Chronic kidney disease. 9. Morbid obesity. 10. Chronic immobility syndrome. 11. Severe bilateral osteoarthritis. 12. Obstructive sleep apnea. PAST SURGICAL HISTORY 1. Right carpal tunnel release. 2. BTL. 3. . 4. Bilateral ear tubes. HOME MEDICATIONS From the list: 1. Neurontin. 2. Lexapro. Unit #: [id number] #: [id number] Patient: LINDA VANG 3. Glucophage. 4. Xanax. 5. Bumex. 6. Lipitor. 7. Clonidine. 8. Cardura. 9. Hydralazine. 10. Cozaar. 11. Ferrous gluconate. 12. Reglan. 13. Carafate. 14. Aspirin. 15. Renvela. 16. Aldactone. 17. Protonix. 18. K-Radha. 19. Flexeril. 20. Glucotrol. 21. Doxycycline. ALLERGIES 1. Penicillin. 2. Tylenol. 3. Amoxicillin. 4. Codeine. SOCIAL HISTORY The patient lives with a roommate. She stopped smoking in her 20s and was never a heavy smoker. Does not drink alcohol. FAMILY HISTORY COPD and lung cancer. REVIEW OF SYSTEMS A 14-point review of systems performed and only pertinent positive findings are described above. PHYSICAL EXAMINATION VITAL SIGNS: Temperature 97, pulse 78, respiratory rate 24, blood pressure 182/105, saturating 89% at room air. GENERAL: Patient is lying on the bed not in acute distress. HEENT: Atraumatic, normocephalic. Pupils equal, round, and reactive to light and accommodation. Extraocular movements are intact. NECK: Supple. LUNGS: Decreased air entry at the bases. HEART: Regular rate and rhythm. Positive for murmur. ABDOMEN: Soft, positive bowel sounds. EXTREMITIES: Chronic venous stasis. Chronic edema. NEUROLOGIC: Alert, awake, oriented. No gross focal motor deficit. DIAGNOSTIC STUDIES LABORATORY: Glucose 132, BUN 20, creatinine 1.2, sodium 134, potassium 4.1, chloride 102, bicarb 26, and calcium is 9. Total protein 6.9, AST 17, ALT 14, alkaline phosphatase 73. BNP 529. WBC 6.1, hemoglobin 10.7, hematocrit 34.4, platelets 229. IMAGING: Chest x-ray shows cardiomegaly and moderate interstitial edema. This is fairly similar to the prior study. Unit #: [id number] #: [id number] Patient: LINDA VANG ASSESSMENT AND PLAN 1. Hypertensive urgency. 2. Chronic respiratory failure. 3. Chronic systolic congestive heart failure. PLAN 1. Admit patient to observation with telemetry. 2. Will have Cardiology see the patient for the hypertensive urgency and chronic systolic heart failure. 3. Continue with Bumex 2 mg IV b.i.d. 4. Case management for home oxygen delivery. 5. Repeat CBC and BMP in the morning. 6. Further recommendations will follow. Dictated by Isidro Navarro TD: 10/11/2016 19:42 JOB #: [id number] HISTORY AND PHYSICAL Page 1 of 1 X X HISTORY AND PHYSICAL
--- NOTE | ~2016-10-11 | CO ---
Unit #: [id number] #: [id number] Patient: LINDA VANG [id number] [facility] [address] [place], [place] [address] [id number] I MR#: [id number] NAME: LINDA VANG ROOM: 324 Age: 46 Sex: F Admission Date: 10/11/2016 : 1970 Attending Physician: Arsenio Elias M.D. Primary Care Physician: Stacia Torres M.D. Consultation Date: 10/12/2016 CONSULTATION REPORT REASON FOR CONSULTATION Hypertension and congestive heart failure. HISTORY OF PRESENT ILLNESS This is a 46-year-old -Maur[place] female previously known to our group with recent admission to [facility] 08/2016 for hypertensive urgency, abdominal pain and nausea and vomiting. Gastroenterology was consulted. The patient was readmitted on 10/06/2016 through 10/10/2016 for respiratory failure, congestive heart failure, and hypertension. There was concern for possible pneumonia and she was also placed on antibiotics. She was just discharged home and then returned to the hospital yesterday. She states that since discharge she has been short of breath. On Sunday she got up and got her son to school. When she sat down she was very short of breath. She checked her oxygen level and it was in the 70s. She admits to a cough with productive sputum. There are no reports of fever. She has had some headaches. She denies any weight changes, chest pain, palpitations, dizziness, or syncope. She is complaining of some joint pain in her knees as well as her back. She states that her legs are chronically swollen. She states that she has been taking her medications and there was multiple changes made last time she was here. In the emergency department her temperature was 97, pulse 78, respirations 24, blood pressure 182/105 and O2 saturation 89% on room air. She was placed on 2 L nasal cannula. Blood pressure was elevated and she was given clonidine and [place]. Chest x-ray revealed interstitial edema. Labs revealed a BNP of 529. Creatinine was 1.2 with a BUN of 19. TSH was normal. EKG revealed sinus rhythm with some T wave inversion in the lateral leads. She was started on IV Bumex for suspected congestive heart failure. Her blood pressure medications were adjusted but she remains above goal. Cardiology was consulted for further management. PAST MEDICAL HISTORY 1. Recent admission to [facility] 10/06/2016 through 10/10/2016 for respiratory failure, congestive heart failure, and hypertension. Possible pneumonia. 2. Previous admission [facility] 08/2016 for hypertensive urgency, abdominal pain, and nausea and vomiting. 3. 2D echocardiogram 09/10/2016 revealed a technically difficult study. Ejection fraction questionably 40% to 45%. Mildly dilated left atrium. Mild aortic stenosis. Mild to moderate aortic regurgitation. Small pericardial effusion versus fat tissue. 4. Previous 2D echocardiogram 11/2013 revealed ejection fraction of 45% to 50% with trace mitral and tricuspid regurgitation. Unit #: [id number] #: [id number] Patient: LINDA VNAG 5. Chronic respiratory failure. 6. COPD. 7. Obstructive sleep apnea. 8. Morbid obesity with a BMI of 56. 9. Anxiety. 10. Chronic kidney disease. 11. Hypertension. 12. Diabetes mellitus type 2. 13. Chronic immobility syndrome. 14. Severe bilateral knee osteoarthritis. 15. Questionable compliance and medical adherence. 16. Reformed tobacco abuse. PAST SURGICAL HISTORY 1. . 2. BTL. 3. Right carpal tunnel release. 4. Bilateral ear tubes. HOME MEDICATIONS Aldactone 25 mg p.o. daily; potassium chloride 20 mEq p.o. daily; doxycycline 100 mg p.o. b.i.d.; Glucotrol 5 mg p.o. daily; Neurontin 100 mg p.o. 3 times daily; Bumex 2 mg p.o. b.i.d.; Renvela 800 mg p.o. 3 times daily; clonidine 0.3 mg p.o. 3 times daily; Protonix 40 mg p.o. daily; Glucophage 1,000 mg p.o. b.i.d.; hydralazine 100 mg p.o. b.i.d.; ferrous sulfate 325 mg p.o. daily; Cardura 2 mg p.o. at bedtime; Flexeril 10 mg p.o. 3 times daily; Lipitor 20 mg p.o. q.h.s.; aspirin 81 mg p.o. daily; Reglan 10 mg p.o. before meals and at bedtime; Carafate 1 g p.o. before meals and at bedtime; citalopram 10 mg p.o. daily; Xanax 0.5 mg p.o. daily p.r.n.; metoprolol tartrate 100 mg p.o. b.i.d.; urea 142 g external twice daily; losartan 50 mg p.o. b.i.d. ALLERGIES Penicillin, codeine, [place], acetaminophen. A severe reaction to penicillin and amoxicillin. SOCIAL HISTORY The patient lives in a private residence with her roommate and her child. She is a formed smoker. No reports of alcohol or illicit drug use. FAMILY HISTORY Her mother had COPD and from lung cancer. Her father had hypertension. REVIEW OF SYSTEMS Ten point review of systems negative except for details noted above in HPI. PHYSICAL EXAMINATION VITAL SIGNS: Temperature 97.6, pulse 67, blood pressure 159/120. CONSTITUTIONAL: This is a 46-year-old morbidly obese, -Maur[place] female in no acute distress. SKIN: Warm and dry. NECK: Supple. No jugular venous distention. No hepatojugular reflux. Normal carotid upstrokes. No carotid bruits auscultated. HEART: S1 and S2. Regular rate and rhythm. No murmurs, rubs or gallops. LUNGS: Bilateral breath sounds are diminished in the bases. Respirations even and unlabored. No rales, rhonchi or wheezes. Unit #: [id number] #: [id number] Patient: LINDA VANG ABDOMEN: Soft, nontender, nondistended, but is obese. Positive bowel sounds auscultated x4 quadrants. EXTREMITIES: Bilateral extremities have at least 2+ pitting edema. DP and PT pulses 1+. Capillary refill after three seconds. DIAGNOSTIC STUDIES LABORATORY DATA: White blood cell count 4.2, hemoglobin 10.4, hematocrit 33.5, platelets 211. Sodium 137, potassium 4.2, chloride 100, CO2 24, BUN 19, creatinine 1.2, glucose 149. Troponin 0.06 and 0.06. BMP 529. CK total 281, CK 757. Hemoglobin A1c 7.7. TSH 2.3, total cholesterol 102, triglycerides 96, LDL 43, HDL 40. IMAGING STUDIES: Chest x-ray reveals moderate pulmonary edema. CARDIOVASCULAR STUDIES: Electrocardiogram revealed sinus rhythm with T wave inversion in the lateral leads. Poor R wave progression. IMPRESSION 1. Acute on chronic hypoxic respiratory failure. 2. Acute on chronic systolic congestive heart failure with an ejection fraction questionably 40% to 45%. 3. Uncontrolled hypertension. 4. Diabetes mellitus type 2. 5. Morbid obesity. 6. Chronic kidney disease. 7. Anxiety. 8. Chronic obstructive pulmonary disease. 9. Obstructive sleep apnea. 10. Possible recent pneumonia with continued productive cough. PLAN 1. The patient presented to the hospital with complaints of shortness of breath and low oxygen levels. She was admitted for uncontrolled hypertension and congestive heart failure. 2. Cardiology was consulted for further management. 3. Patient has been placed on strict intake and output fluid restriction and continued on home medications. She is also on IV diuretics for the time being. 4. She has been started on amlodipine to help with blood pressure management. 5. [facility] has been consulted as well as cardiac rehab. 6. The patient has been encouraged to follow fluid restriction and to be compliant with medications. She needs to decrease caloric intake and to attempt to walk to lose weight. If she can lose weight, she should be considered for bariatric surgery. Dictated by... Andie Chowdary APRN for Isidro Cohen TD: 10/13/2016 06:43 JOB #: [id number] Unit #: [id number] #: [id number] Patient: LINDA VANG CONSULTATION REPORT Page 1 of 1 X X CONSULTATION REPORT
--- NOTE | ~2016-10-11 | DS ---
Unit #: [id number] #: [id number] Patient: LINDA VANG [id number] [facility] [address] [place], [place] [address] [id number] MR#: [id number] NAME: LINDA VANG ROOM: 324 Age: 46 Sex: F Admission Date: 10/11/2016 : 1970 Discharge Date: 10/13/2016 Attending Physician: Arsenio Elias M.D. Primary Care Physician: Stacia Torres M.D. DISCHARGE SUMMARY REASON FOR ADMISSION Dyspnea. HISTORY OF PRESENT ILLNESS/HOSPITAL COURSE The patient is a 46-year-old female, who was recently admitted to our hospital approximately three days before this particular admission with accelerated hypertension who was readmitted secondary to persistent dyspnea/shortness of breath. Apparently, she stated that she was supposed to be set up with home oxygen but the oxygen company did not come to her home. She began developing increased dyspnea on exertion and subsequently presented to the hospital for further evaluation. It was noted that her O2 saturations were 89%. In the emergency room, her blood pressure was elevated to 182/105, and thus she was admitted for acute hypoxic respiratory failure, as well as hypertensive urgency. Consultation was placed to Dr. Travis of [facility]. Medication adjustments were made. Please see below for new regimen. Unfortunately, the patient does have fairly significant elevated blood pressure likely associated secondary to a combination of genetic factors as well as severe morbid obesity. In regard to the severe morbid obesity, once again, she was counseled on weight loss and I asked her to follow up with her family physician to discuss the possibility of lap band and/or gastric sleeve. At baseline, she does not ambulate, she stays in a power wheelchair the majority of the day. She will be reassessed for home O2 prior to discharge on this hospital admission and appropriate arrangements will be made for oxygen to be set up at home. It is noted that her ejection fraction is close to 40% to 45%. She did not qualify for cardiac rehab. FINAL DISCHARGE DIAGNOSES 1. Dyspnea, multifactorial, origin secondary to severe morbid obesity, BMI greater than 50. 2. Systolic heart failure. 3. Restrictive lung disease. 4. Chronic obstructive pulmonary disease. 5. Severe morbid obesity. 6. Ofvfi-nr-qyltudp respiratory failure. 7. Dpxir-ut-piwwrok systolic heart failure. Unit #: [id number] #: [id number] Patient: LINDA VANG 8. Type 2 diabetes. 9. Chronic kidney disease. 10. Chronic immobility syndrome. 11. Severe bilateral hip and knee osteoarthritis. 12. Sleep apnea. 13. Questionable compliance with medications. DISCHARGE MEDICATIONS 1. Flexeril 10 mg p.o. q.8 p.r.n. 2. Glucotrol 5 mg p.o. daily with breakfast 3. Doxycycline 100 mg p.o. b.i.d. x5 days continued from previous admission 4. Neurontin 100 mg p.o. t.i.d. 5. Lexapro 10 mg p.o. daily 6. Glucophage 1000 mg p.o. b.i.d. 7. Xanax 0.5 mg p.o. daily p.r.n. carried over from previous admission 8. Norvasc 5 mg p.o. b.i.d. 9. Lopressor 100 mg p.o. b.i.d. 10. Ferrous sulfate 325 mg p.o. daily 11. Reglan 10 mg p.o. q.a.c. and q.h.s. 12. Carafate 1 gram p.o. q.a.c. and q.h.s. 13. Aspirin 81 mg daily 14. Renvela 800 mg p.o. t.i.d. with meals 15. Aldactone 25 mg p.o. daily 16. Protonix 40 mg p.o. daily 17. Klor-Con 20 mEq p.o. daily 18. Bumex 2 mg p.o. b.i.d. 19. Lipitor 20 mg p.o. q.h.s. 20. Catapres 0.3 mg p.o. t.i.d. 21. Cardura 2 mg p.o. q.h.s. 22. Hydralazine 100 mg p.o. q.8 23. Cozaar 100 mg p.o. b.i.d. DISCHARGE CONDITION Stable. DISCHARGE DISPOSITION Home. FOLLOWUP With primary care physician within pzpqa-el-cmj days to discuss outpatient lap band and/or gastric sleeve. 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 Chance of readmission significantly high secondary to associated comorbid conditions, as well as long-standing history of noncompliance. Dictated by... Isidro Ni/amanda TD: 10/15/2016 13:49 JOB #: [id number] Unit #: [id number] #: [id number] Patient: FAMILIALINDA MEYER KEAGAN DISCHARGE SUMMARY Page 1 of 1 X Arsenio Elias MD X DISCHARGE SUMMARY
[~2016-10-11 13:53] MED LIST changes: +ALDACTONE25 MG PO; +ALPRAZOLAM0.5 MG PO; +ATRAC-TAIN142 GM EXT; +CARAFATE1 GM PO; +DOXYCYCLINE HY100 M3 PO; +ESCITALOPRAM OX10 MG PO; +K-DUR20 ME2 PO; +METOPROLOL TAR100 MG PO; +REGLAN10 MG PO
[2016-10-11 18:09] LABS: BASOPHIL# 0.1 X10e3 (0-0.3); BASOPHIL% 0.9 % (0-2.5); EOSINOPHIL# 0.1 X10e3 (0-0.7); EOSINOPHIL% 1.9 % (0.0-7.0); HEMATOCRIT 34.4 % (35.0-45.0); HEMOGLOBIN 10.7 gm/dL (12.0-16.0); LYMPHOCYTE# 1.4 X10e3 (1.0-3.5); LYMPHOCYTE% 22.8 % (17.0-45.0); MEAN CORPUSCULAR HEMOGLOBIN 25.6 PG (28-34); MEAN CORPUSCULAR HGB CONC 31.2 g/dL (30-36); MEAN PLATELET VOLUME 10.2 FL (6.5-11.5); MONOCYTE# 0.2 X10e3 (0-1.0); MONOCYTE% 3.7 % (3.0-12.0); NEUTROPHIL# 4.3 X10e3 (1.5-7.1); NEUTROPHIL% 70.7 % (40-75); PLATELET COUNT 229 X10e3 (140-420); RED CELL DISTRIBUTION WIDTH 15.2 % (11.0-15.5); WHITE BLOOD COUNT 6.1 X10e3 (4.0-10.5)
[2016-10-11 18:10] LABS: DIFF IND NO
[2016-10-11 18:22] LABS: POC - CKMB 1.2 ng/mL (0.0-7.9); POC - TROPONIN <0.05 ng/mL (<=0.05)
[2016-10-11 18:32] LABS: BILIRUBIN, DIRECT 0.1 mg/dL (0.0-0.2); BILIRUBIN,INDIRECT 0.6 mg/dL (0.0-0.9); BILIRUBIN,TOTAL 0.7 mg/dL (0.2-2.0); BUN/CREATININE RATIO 16.66; CREATININE SERUM 1.2 mg/dL (0.6-1.4); GLOM FILT RATE Estimated 61.9 mL/min (>60); POTASSIUM 4.1 mmol/L (3.5-5.1); PROTEIN TOTAL SERUM 6.9 g/dL (6.0-8.3)
[2016-10-12 06:22] LABS: BASOPHIL% 1.1 % (0-2.5); EOSINOPHIL# 0.1 X10e3 (0-0.7); EOSINOPHIL% 2.4 % (0.0-7.0); HEMATOCRIT 33.5 % (35.0-45.0); HEMOGLOBIN 10.4 gm/dL (12.0-16.0); LYMPHOCYTE# 1.1 X10e3 (1.0-3.5); LYMPHOCYTE% 25.6 % (17.0-45.0); MEAN CELL VOLUME 82.7 FL (83-96); MEAN CORPUSCULAR HEMOGLOBIN 25.7 PG (28-34); MEAN CORPUSCULAR HGB CONC 31.1 g/dL (30-36); MONOCYTE# 0.2 X10e3 (0-1.0); MONOCYTE% 4.4 % (3.0-12.0); NEUTROPHIL# 2.8 X10e3 (1.5-7.1); NEUTROPHIL% 66.5 % (40-75); PLATELET COUNT 211 X10e3 (140-420); RED BLOOD COUNT 4.05 X10e (3.90-5.30); WHITE BLOOD COUNT 4.2 X10e3 (4.0-10.5)
[2016-10-12 06:23] LABS: DIFF IND NO
[2016-10-12 08:02] LABS: BUN/CREATININE RATIO 15.83; CALCIUM SERUM 8.9 mg/dL (8.4-10.2); CREATININE SERUM 1.2 mg/dL (0.6-1.4); GLOM FILT RATE Estimated 61.9 mL/min (>60); POTASSIUM 4.2 mmol/L (3.5-5.1)
[2016-10-13 06:24] LABS: BUN/CREATININE RATIO 16.36; CALCIUM SERUM 8.9 mg/dL (8.4-10.2); CREATININE SERUM 1.1 mg/dL (0.6-1.4); GLOM FILT RATE Estimated 68.8 mL/min (>60); MAGNESIUM 1.8 mg/dL (1.6-3.0); POTASSIUM 4.5 mmol/L (3.5-5.1)
[2016-10-13] MEDS ORDERED: NORVASC PO (10:36)
== END 2016-10-13 15:46 | disposition home or self-care (01) ==
LOC: CED 13:53 → CEDOF 19:20 → C3A PCU 19:20 → CEDOF 19:38 → CED 19:38 → CEDOF 23:45 → C3A PCU 23:45 → C2A 23:45 → C3A PCU 10-12 08:49
PROVIDERS: Emergency Medicine; Internal Medicine; Internal Medicine Cardiovascular Disease
DX: R06.00 Dyspnea, unspecified (principal); E66.01 Morbid (severe) obesity due to excess calories; Z68.43 Body mass index [BMI] 50.0-59.9, adult; I51.7 Cardiomegaly; J81.1 Chronic pulmonary edema; I50.23 Acute on chronic systolic (congestive) heart failure; J98.4 Other disorders of lung; J44.9 Chronic obstructive pulmonary disease, unspecified; I35.2 Nonrheumatic aortic (valve) stenosis with insufficiency; I51.9 Heart disease, unspecified; I13.0 Hypertensive heart and chronic kidney disease with heart failure and stage 1 through stage 4 chronic kidney disease, or unspecified chronic kidney disease; J96.20 Acute and chronic respiratory failure, unspecified whether with hypoxia or hypercapnia; N18.9 Chronic kidney disease, unspecified; E11.22 Type 2 diabetes mellitus with diabetic chronic kidney disease; Z79.84 Long term (current) use of oral hypoglycemic drugs; I16.0 Hypertensive urgency; F41.9 Anxiety disorder, unspecified; G47.33 Obstructive sleep apnea (adult) (pediatric); M62.3 Immobility syndrome (paraplegic); M16.0 Bilateral primary osteoarthritis of hip; M17.0 Bilateral primary osteoarthritis of knee; Z79.899 Other long term (current) drug therapy; Z79.82 Long term (current) use of aspirin; Z87.01 Personal history of pneumonia (recurrent); Z87.09 Personal history of other diseases of the respiratory system; Z87.891 Personal history of nicotine dependence; Z80.1 Family history of malignant neoplasm of trachea, bronchus and lung; Z84.89 Family history of other specified conditions; Z88.0 Allergy status to penicillin; Z88.5 Allergy status to narcotic agent; Z88.6 Allergy status to analgesic agent
CPT/HCPCS: 36415; 71010; 80048; 80076; 82553; 82947; 83735; 83880; 84484; 85025; 93005; 94640; 94760; 96372; 96374; 96376; 99285; G0378; J1650; J1815

== ENCOUNTER 2017-01-02 13:17 | Emergency (ER) | payer MEDICARE, OTHER ==
[~2017-01-02] VITALS: Ht 172.7 cm; Wt 169.6 kg
[~2017-01-02 13:17] MED LIST changes: +NORVASC PO
== END 2017-01-02 13:46 | disposition home or self-care (01) ==
LOC: CED 13:17 → CFTX 13:17
DX: J02.9 Acute pharyngitis, unspecified (principal); I11.0 Hypertensive heart disease with heart failure; I50.9 Heart failure, unspecified; J44.9 Chronic obstructive pulmonary disease, unspecified; J45.909 Unspecified asthma, uncomplicated; Z88.0 Allergy status to penicillin; Z88.1 Allergy status to other antibiotic agents; Z88.5 Allergy status to narcotic agent; Z79.84 Long term (current) use of oral hypoglycemic drugs; Z79.899 Other long term (current) drug therapy
CPT/HCPCS: 99283

== ENCOUNTER 2017-01-20 13:10 | Emergency (ER) | payer MEDICARE, OTHER ==
[~2017-01-20] VITALS: Ht 174 cm; Wt 158.8 kg
== END 2017-01-20 14:55 | disposition home or self-care (01) ==
LOC: CFTX 13:10 → CED 13:10 → CFTX 14:47
DX: J02.0 Streptococcal pharyngitis (principal); H65.91 Unspecified nonsuppurative otitis media, right ear; Z87.891 Personal history of nicotine dependence; Z79.82 Long term (current) use of aspirin; Z79.84 Long term (current) use of oral hypoglycemic drugs; Z79.899 Other long term (current) drug therapy; Z88.5 Allergy status to narcotic agent; Z88.0 Allergy status to penicillin
CPT/HCPCS: 87880; 99283